=== PATIENT | female | born 1960 | race American Indian/Alaskan Native ===

== ENCOUNTER 2016-08-20 10:31 | Inpatient (IN) | payer MEDICAID ==
[2016-08-20] MEDS ORDERED: ZOFRAN ODT PO ONE (11:38)
[2016-08-20] MEDS ORDERED: NACL 0.9% 1000 ML 2,000 ML IV ONE (11:38)
[2016-08-20] MEDS ORDERED: ROCEPHIN/NS 1 GM/50 ML 1 GM/50 ML BAG IV ONE (12:00)
[2016-08-20] MEDS ORDERED: FLAGYL 500 MG/100 ML 500 MG/100 ML BAG IV ONE (12:00)
[2016-08-20 12:11] LABS: Bilirubin,Urine NEG (Negative); Blood,Urine SM (Negative); Ketones,Urine NEG (Negative); Leukocyte Esterase,Urine LG (Negative); Mucus,Urine FEW /HPF; Nitrite,Urine NEG (Negative); Protein,Urine <15 mg/dL mg/dL (Negative); RBC,Urine < 1.0 /HPF (0.0-6.0); Urobilinogen,Urine < 2.0 mg/dL (<2.0)
[2016-08-20 12:22] LABS: Hematocrit 29.9 % (30.3-42.9); Mean Corpuscular HGB Conc 33 % (30-34); Mean Corpuscular Hemoglobin 30 pg (28-32); Mean Corpuscular Volume 91 fl (79-97); Platelet Count 582 K/mm3 (140-440); Red Blood Count 3.29 M/mm3 (3.65-5.03); Red Cell Distribution Width 16.4 % (13.2-15.2); White Blood Count 18.6 K/mm3 (4.5-11.0)
[2016-08-20 12:31] LABS: INR 1.02 (0.87-1.13)
[2016-08-20 12:37] LABS: Albumin 2.7 g/dL (3.9-5); Albumin/Globulin Ratio 0.6 %; BUN/Creatinine Ratio 40.76; Bilirubin,Total 0.4 mg/dL (0.1-1.2); Calcium 7.7 mg/dL (8.4-10.2); Total Protein 6.9 g/dL (6.3-8.2)
[2016-08-20 12:38] LABS: Chloride 79.9 mmol/L (98-107)
[2016-08-20] MEDS ORDERED: LOPRESSOR IV ONE (12:48)
[2016-08-20 12:58] LABS: Potassium 2.8 mmol/L (3.6-5.0)
[2016-08-20 13:09] LABS: Basophils % (Manual) 0 % (0.0-1.8); Blastocytes % (Manual) 0 %
[2016-08-20 13:11] LABS: Macrocytosis 1+; Polychromasia Few
[2016-08-20 13:12] LABS: Diff Status Complete; Platelet Estimate Appears Increased; Target Cells 1+
[2016-08-20] MEDS ORDERED: LOVENOX SUB-Q ONE (13:30)
[2016-08-20] MEDS ORDERED: K-DUR PO ONE (13:44)
[2016-08-20] MEDS: KCL 10MEQ/100ML 10 MEQ/100 ML BAG IV SCH ×6 (14:06→19:00)
--- NOTE | 2016-08-20 14:10 | Emergency Department Report ---
HPI - General Chief Complaint: Pain General ED Past Medical Hx - Past Medical History Previous Medical History?: Yes Hx Hypertension: Yes Hx CVA: No Hx Congestive Heart Failure: Yes Hx Diabetes: No Hx Arthritis: Yes Hx Asthma: No Hx COPD: Yes - Social History Smoking Status: Current Every Day Smoker Substance Use Type: Alcohol - Medications Home Medications: Home Medications Medication Instructions Recorded Confirmed Last Taken Type Furosemide [Lasix TAB] 40 mg PO QDAY 04/29/16 04/29/16 1 Day Ago History Metoprolol [Lopressor TAB] 12.5 mg PO BID #60 tablet 04/30/16 Unknown Rx NIFEdipine XL [Procardia Xl] 60 mg PO QDAY #30 tablet 04/30/16 Unknown Rx Valsartan [Diovan] 160 mg PO BID #60 tablet 04/30/16 Unknown Rx HYDROcodone/APAP 5-325 [[place] 1 each PO Q4HR PRN #15 tablet 08/20/16 Unknown Rx 5/325] ED Review of Systems ROS: Stated complaint: BED SORES/DIARRHEA Other details as noted in HPI Physical Exam - Physical Exam Vital Signs: Vital Signs 08/20/16 08/20/16 08/20/16 10:59 12:48 13:08 Temperature 97.5 F L Pulse Rate 96 H 114 H 92 H Respiratory 14 13 Rate Blood Pressure 129/65 126/91 Blood Pressure 118/91 [Left] O2 Sat by Pulse 100 100 Oximetry ED Course Vital Signs 08/20/16 08/20/16 08/20/16 10:59 12:48 13:08 Temperature 97.5 F L Pulse Rate 96 H 114 H 92 H Respiratory 14 13 Rate Blood Pressure 129/65 126/91 Blood Pressure 118/91 [Left] O2 Sat by Pulse 100 100 Oximetry ED Medical Decision Making - Lab Data Result diagrams: 08/20/16 11:55 08/20/16 11:55 - Medical Decision Making Dr. Mccullough hospitalists accepts admission. See paper chart for HPI, and ROS Critical care attestation.: If time is entered above; I have spent that time in minutes in the direct care of this critically ill patient, excluding procedure time. ED Disposition Clinical Impression: Hypokalemia, Hyponatremia, SIRS (systemic inflammatory response syndrome) Diarrhea Qualifiers: Diarrhea type: unspecified type Qualified Code(s): R19.7 - Diarrhea, unspecified Disposition: OP ADMITTED IP TO THIS HOSP Is pt being admited?: Yes Condition: Stable Prescriptions: HYDROcodone/APAP 5-325 [[place] 5/325] 1 each PO Q4HR PRN #15 tablet PRN Reason: Pain Referrals: PRIMARY CARE, [Primary Care Provider] - 3-5 Days Time of Disposition: 14:09
--- NOTE | 2016-08-20 16:30 | XRay Report ---
PORTABLE CHEST INDICATION: Tachycardia. COMPARISON: 04/29/2016 FINDINGS: Portable, frontal chest radiograph demonstrates improved congestive pattern. Mild cardiomegaly. Aortic knob calcifications. No large pleural effusions or CHF. EKG leads. Demineralized bones. CONCLUSION: Mild cardiomegaly. Thank you for the opportunity to participate in this patient's care.
--- NOTE | 2016-08-20 17:13 | History and Physical Report ---
History of Present Illness Date of examination: 08/20/16 Date of admission: 08/20/16 Chief complaint: Diarrhea for 4 days History of present illness: 55 y/o AAF poor historian comes in for loose watery stools 4 to 5 times a day for last 4 days.Feels weak.No fever or chills.Has hx of HTN CHF,Copd. No N/V.No SOB Past History Past Medical History: COPD, heart failure, hypertension Past Surgical History: hernia repair, Other (Abd wall Hernia) Social history: lives with family, full code. denies: smoking, alcohol abuse Family history: hypertension Medications and Allergies Allergies Allergy/AdvReac Type Severity Reaction Status Date / Time No Known Allergies Allergy Verified 11/02/15 13:46 Home Medications Medication Instructions Recorded Confirmed Last Taken Type Furosemide [Lasix TAB] 40 mg PO QDAY 04/29/16 04/29/16 1 Day Ago History Metoprolol [Lopressor TAB] 12.5 mg PO BID #60 tablet 04/30/16 Unknown Rx NIFEdipine XL [Procardia Xl] 60 mg PO QDAY #30 tablet 04/30/16 Unknown Rx Valsartan [Diovan] 160 mg PO BID #60 tablet 04/30/16 Unknown Rx HYDROcodone/APAP 5-325 [[place] 1 each PO Q4HR PRN #15 tablet 08/20/16 Unknown Rx 5/325] Active Meds: Active Medications Potassium Chloride (Kcl 10meq/100ml) 10 meq in 100 mls @ 100 mls/hr IV Q1H AMADOR Stop: 08/20/16 17:59 Last Admin: 08/20/16 16:18 Dose: 100 mls/hr Review of Systems All systems: negative Constitutional: no weight loss, no weight gain Ears, nose, mouth and throat: no dysphagia, no sore throat Breasts: deferred Cardiovascular: no chest pain, no orthopnea, no palpitations, no syncope, no lightheadedness, no shortness of breath Respiratory: no cough with sputum, no excessive sputum Gastrointestinal: diarrhea, no nausea, no vomiting Genitourinary Female: no flank pain, no menorrhagia, no dysuria, no urinary frequency Menstruation: ammenorrhea Musculoskeletal: no neck stiffness, no neck pain, no muscle cramps, no myalgias Integumentary: no rash, no pruritis, no redness Neurological: no seizures, no syncope Psychiatric: no anxiety, no depression Endocrine: no cold intolerance, no heat intolerance, no polyphagia, no excessive thirst, no polydipsia, no polyuria Hematologic/Lymphatic: no easy bruising Allergic/Immunologic: no urticaria, no allergic rhinitis, no wheezing Exam - Constitutional Vitals: Temp Pulse Resp BP Pulse Ox 97.5 F L 100 H 17 111/70 100 08/20/16 10:59 08/20/16 15:02 08/20/16 15:02 08/20/16 15:02 08/20/16 15:02 General appearance: Present: no acute distress, well-nourished - EENT Eyes: Present: PERRL ENT: hearing intact, clear oral mucosa - Neck Neck: Present: supple, normal ROM - Respiratory Respiratory effort: normal Respiratory: bilateral: CTA - Cardiovascular Heart Sounds: Present: S1 & S2. Absent: rub, click - Extremities Extremities: pulses symmetrical, No edema Peripheral Pulses: within normal limits - Abdominal General gastrointestinal: Present: soft, non-tender, non-distended, normal bowel sounds, hernia (Abd wall Hernia stu umblical-left) Female genitourinary: Present: normal - Integumentary Integumentary: Present: clear, warm, dry - Musculoskeletal Musculoskeletal: gait normal, strength equal bilaterally - Psychiatric Psychiatric: appropriate mood/affect, intact judgment & insight - Neurologic Neurologic: CNII-XII intact, moves all extremities Results - Labs CBC & Chem 7: 08/21/16 04:54 08/21/16 04:54 Labs: Laboratory Last Values WBC 18.6 K/mm3 (4.5-11.0) H 08/20/16 11:55 RBC 3.29 M/mm3 (3.65-5.03) L 08/20/16 11:55 Hgb 10.0 gm/dl (10.1-14.3) L 08/20/16 11:55 Hct 29.9 % (30.3-42.9) L 08/20/16 11:55 MCV 91 fl (79-97) 08/20/16 11:55 MCH 30 pg (28-32) 08/20/16 11:55 MCHC 33 % (30-34) 08/20/16 11:55 RDW 16.4 % (13.2-15.2) H 08/20/16 11:55 Plt Count 582 K/mm3 (140-440) H 08/20/16 11:55 Add Manual Diff Complete 08/20/16 11:55 Total Counted 100 08/20/16 11:55 Seg Neuts % (Manual) 92.0 % (40.0-70.0) H 08/20/16 11:55 Band Neutrophils % 0 % 08/20/16 11:55 Lymphocytes % (Manual) 2.0 % (13.4-35.0) L 08/20/16 11:55 Reactive Lymphs % (Man) 0 % 08/20/16 11:55 Monocytes % (Manual) 5.0 % (0.0-7.3) 08/20/16 11:55 Eosinophils % (Manual) 1.0 % (0.0-4.3) 08/20/16 11:55 Basophils % (Manual) 0 % (0.0-1.8) 08/20/16 11:55 Metamyelocytes % 0 % 08/20/16 11:55 Myelocytes % 0 % 08/20/16 11:55 Promyelocytes % 0 % 08/20/16 11:55 Blast Cells % 0 % 08/20/16 11:55 Nucleated RBC % Not Reportable 08/20/16 11:55 Seg Neutrophils # Man 17.1 K/mm3 (1.8-7.7) H 08/20/16 11:55 Band Neutrophils # 0.0 K/mm3 08/20/16 11:55 Lymphocytes # (Manual) 0.4 K/mm3 (1.2-5.4) L 08/20/16 11:55 Abs React Lymphs (Man) 0.0 K/mm3 08/20/16 11:55 Monocytes # (Manual) 0.9 K/mm3 (0.0-0.8) H 08/20/16 11:55 Eosinophils # (Manual) 0.2 K/mm3 (0.0-0.4) 08/20/16 11:55 Basophils # (Manual) 0.0 K/mm3 (0.0-0.1) 08/20/16 11:55 Metamyelocytes # 0.0 K/mm3 08/20/16 11:55 Myelocytes # 0.0 K/mm3 08/20/16 11:55 Promyelocytes # 0.0 K/mm3 08/20/16 11:55 Blast Cells # 0.0 K/mm3 08/20/16 11:55 WBC Morphology Not Reportable 08/20/16 11:55 Hypersegmented Neuts Not Reportable 08/20/16 11:55 Hyposegmented Neuts Not Reportable 08/20/16 11:55 Hypogranular Neuts Not Reportable 08/20/16 11:55 Smudge Cells Not Reportable 08/20/16 11:55 Toxic Granulation Not Reportable 08/20/16 11:55 Toxic Vacuolation Not Reportable 08/20/16 11:55 Dohle Bodies Not Reportable 08/20/16 11:55 Pelger-Huet Anomaly Not Reportable 08/20/16 11:55 Emy Rods Not Reportable 08/20/16 11:55 Platelet Estimate Appears increased 08/20/16 11:55 Clumped Platelets Not Reportable 08/20/16 11:55 Plt Clumps, EDTA Not Reportable 08/20/16 11:55 Large Platelets Not Reportable 08/20/16 11:55 Giant Platelets Not Reportable 08/20/16 11:55 Platelet Satelliting Not Reportable 08/20/16 11:55 Plt Morphology Comment Not Reportable 08/20/16 11:55 RBC Morphology Not Reportable 08/20/16 11:55 Dimorphic RBCs Not Reportable 08/20/16 11:55 Polychromasia Few 08/20/16 11:55 Hypochromasia Not Reportable 08/20/16 11:55 Poikilocytosis Not Reportable 08/20/16 11:55 Anisocytosis Not Reportable 08/20/16 11:55 Microcytosis Not Reportable 08/20/16 11:55 Macrocytosis 1+ 08/20/16 11:55 Spherocytes Not Reportable 08/20/16 11:55 Pappenheimer Bodies Not Reportable 08/20/16 11:55 Sickle Cells Not Reportable 08/20/16 11:55 Target Cells 1+ 08/20/16 11:55 Tear Drop Cells Not Reportable 08/20/16 11:55 Ovalocytes Not Reportable 08/20/16 11:55 Helmet Cells Not Reportable 08/20/16 11:55 [place] Bodies Not Reportable 08/20/16 11:55 [place] Rings Not Reportable 08/20/16 11:55 [place] Cells Not Reportable 08/20/16 11:55 Bite Cells Not Reportable 08/20/16 11:55 Crenated Cell Not Reportable 08/20/16 11:55 Elliptocytes Not Reportable 08/20/16 11:55 Acanthocytes (Spur) Not Reportable 08/20/16 11:55 Rouleaux Not Reportable 08/20/16 11:55 Hemoglobin C Crystals Not Reportable 08/20/16 11:55 Schistocytes Not Reportable 08/20/16 11:55 Malaria parasites Not Reportable 08/20/16 11:55 Prasad Bodies Not Reportable 08/20/16 11:55 Hem Pathologist Commnt No 08/20/16 11:55 PT 13.3 Sec. (12.2-14.9) 08/20/16 11:55 INR 1.02 (0.87-1.13) 08/20/16 11:55 APTT 36.0 Sec. (24.2-36.6) 08/20/16 11:55 Sodium 121 mmol/L (137-145) L 08/20/16 11:55 Potassium 2.8 mmol/L (3.6-5.0) L* 08/20/16 11:55 Chloride 79.9 mmol/L (98-107) L 08/20/16 11:55 Carbon Dioxide 21 mmol/L (22-30) L 08/20/16 11:55 Anion Gap 23 mmol/L 08/20/16 11:55 BUN 53 mg/dL (7-17) H 08/20/16 11:55 Creatinine 1.3 mg/dL (0.7-1.2) H 08/20/16 11:55 Estimated GFR 51 ml/min 08/20/16 11:55 BUN/Creatinine Ratio 40.76 % 08/20/16 11:55 Glucose 79 mg/dL (65-100) 08/20/16 11:55 Lactic Acid 2.0 mmol/L (0.7-2.0) 08/20/16 11:55 Calcium 7.7 mg/dL (8.4-10.2) L 08/20/16 11:55 Total Bilirubin 0.4 mg/dL (0.1-1.2) 08/20/16 11:55 AST 16 units/L (5-40) 08/20/16 11:55 ALT 14 units/L (7-56) 08/20/16 11:55 Alkaline Phosphatase 140 units/L (35-129) H 08/20/16 11:55 Troponin T 0.023 ng/mL (0.00-0.029) 08/20/16 11:55 Total Protein 6.9 g/dL (6.3-8.2) 08/20/16 11:55 Albumin 2.7 g/dL (3.9-5) L 08/20/16 11:55 Albumin/Globulin Ratio 0.6 % 08/20/16 11:55 Lipase 17 units/L (13-60) 08/20/16 11:55 Urine Color Yellow (Yellow) 08/20/16 11:54 Urine Turbidity Clear (Clear) 08/20/16 11:54 Urine pH 5.0 (5.0-7.0) 08/20/16 11:54 Ur Specific [place] 1.005 (1.003-1.030) 08/20/16 11:54 Urine Protein <15 mg/dl mg/dL (Negative) 08/20/16 11:54 Urine Glucose (UA) Neg mg/dL (Negative) 08/20/16 11:54 Urine Ketones Neg mg/dL (Negative) 08/20/16 11:54 Urine Blood Sm (Negative) 08/20/16 11:54 Urine Nitrite Neg (Negative) 08/20/16 11:54 Urine Bilirubin Neg (Negative) 08/20/16 11:54 Urine Urobilinogen < 2.0 mg/dL (<2.0) 08/20/16 11:54 Ur Leukocyte Esterase Lg (Negative) 08/20/16 11:54 Urine WBC (Auto) 2.0 /HPF (0.0-6.0) 08/20/16 11:54 Urine RBC (Auto) < 1.0 /HPF (0.0-6.0) 08/20/16 11:54 U Epithel Cells (Auto) < 1.0 /HPF (0-13.0) 08/20/16 11:54 Urine Mucus Few /HPF 08/20/16 11:54 Short CBC 08/20/16 08/21/16 Range/Units 11:55 04:54 WBC 18.6 H 15.1 H (4.5-11.0) K/mm3 Hgb 10.0 L 8.6 L (10.1-14.3) gm/dl Hct 29.9 L 26.2 L (30.3-42.9) % Plt Count 582 H 545 H (140-440) K/mm3 BMP 08/20/16 08/20/16 08/21/16 11:55 18:58 00:06 Sodium 121 L 125 L Potassium 2.8 L* 3.5 L D 3.6 Chloride 79.9 L 89.2 L Carbon Dioxide 21 L 19 L BUN 53 H 53 H Creatinine 1.3 H 1.2 Glucose 79 68 Calcium 7.7 L 7.1 L 08/21/16 04:54 Sodium 134 L D Potassium 3.4 L Chloride 96.7 L Carbon Dioxide 20 L BUN 50 H Creatinine 1.5 H Glucose 54 L Calcium 7.3 L Cardiac Enzymes 08/20/16 Range/Units 11:55 Troponin T 0.023 (0.00-0.029) ng/mL Liver Function 08/20/16 08/21/16 Range/Units 11:55 04:54 Total Bilirubin 0.4 0.5 (0.1-1.2) mg/dL AST 16 15 (5-40) units/L ALT 14 12 (7-56) units/L Alkaline Phosphatase 140 H 111 (35-129) units/L Albumin 2.7 L 2.2 L (3.9-5) g/dL Urine 08/20/16 Range/Units 11:54 Urine Color Yellow (Yellow) Urine pH 5.0 (5.0-7.0) Ur Specific [place] 1.005 (1.003-1.030) Urine Protein <15 mg/dl (Negative) mg/dL Urine Glucose (UA) Neg (Negative) mg/dL - Imaging and Cardiology EKG: report reviewed Chest x-ray: report reviewed (NAF) Assessment and Plan Advance Directives: Yes (Full code) VTE prophylaxis?: Chemical Plan of care discussed with patient/family: Yes - Patient Problems (1) Diarrhea Current Visit: Yes Status: Acute Qualifiers: Diarrhea type: unspecified type Qualified Code(s): R19.7 - Diarrhea, unspecified Plan to address problem: R/o C diff Empiric Flagyl started (2) Hyponatremia syndrome Current Visit: No Status: Acute Plan to address problem: Na 121 sec to Lasix.Not on K supplements. (3) Hypokalemia Current Visit: Yes Status: Acute Plan to address problem: Supplemented. Lasix stopped (4) Chronic diastolic CHF (congestive heart failure) Current Visit: No Status: Chronic Plan to address problem: Stopped lasix Check Echo (5) SIRS (systemic inflammatory response syndrome) Current Visit: Yes Status: Acute Plan to address problem: High WBC.Started on empiric abx.IV levaquin. (6) DVT prophylaxis Current Visit: No Status: Acute Plan to address problem: on lovenox
[2016-08-20] MEDS ORDERED: ZOFRAN IV PRN (17:15)
[2016-08-20] MEDS ORDERED: TYLENOL PO PRN (17:15)
[2016-08-20] MEDS ORDERED: DULCOLAX PR PRN (17:15)
[2016-08-20] MEDS ORDERED: AMBIEN PO PRN (17:15)
[2016-08-20] MEDS ORDERED: MILK OF MAGNESIA PO PRN (17:15)
[2016-08-20] MEDS ORDERED: DILAUDID IV PRN (17:15)
[2016-08-20] MEDS ORDERED: NACL 3% 500 ML IV ONE (17:32)
[2016-08-20] MEDS ORDERED: LASIX PO SCH (18:00)
[2016-08-20] MEDS ORDERED: LEVAQUIN 750MG/150ML 750 MG/150 ML BAG IV SCH (18:00)
[2016-08-20] MEDS ORDERED: D5NS 1,000 ML IV SCH (18:00)
--- NOTE | 2016-08-20 18:15 | Admit Criteria Form ---
Admission Criteria Documentation: HYPONATREMIA; HYPERNATREMIA; HYPOKALEMIA; HYPERKALEMIA; HYPOCALCEMIA; HYPERCALCEMIA Clinical Indications for Inpatient Care (Place 'X' for any and all applicable criteria): Ongoing inpatient care may be indicated for ANY ONE of the following [G](1)(2)(3 )(5): [X ]I. Hyponatremia with ANY ONE of the following: [ X]a) Sodium less than 130 mEq/L (mmol/L) (new) (6)(22) [ ]b) Sodium less than 135 mEq/L (mmol/L) with ANY ONE of the following: [ ]i) Severe medical etiology requiring inpatient management (eg, heart failure, hypovolemia) [ ]ii) Altered mental status [ ]iii) Seizures [ ]II. Hypernatremia with ANY ONE of the following: [ ]a) Sodium greater than 155 mEq/L (mmol/L) [ ]b) Sodium greater than 150 mEq/L (mmol/L) with ANY ONE of the following: [ ] i) Altered mental status [ ]ii) Seizures [ ]iii) Severe medical etiology (eg, hypovolemia, diabetes insipidus) [ ]iv) Severe weakness [ ]v) Severe medical etiology (eg, hemolysis, infection, drug overdose) [ ]III. Hypokalemia with ANY ONE of the following: [ ]a) Potassium less than 2.5 mEq/L (mmol/L) despite outpatient and emergency treatment [ ]b) Potassium less than 3.0 mEq/L (mmol/L) with ANY ONE of the following: [ ]i) Weakness [ ]ii) Cardiac abnormality (eg, arrhythmia, conduction disturbance) [ ]iii) Cardiac ischemia [ ]iv) Ileus [ ]v) Ongoing medical cause requiring inpatient management. ( e.g., acute renal wasting, SIADH) [ ]vi) Other severe symptoms [ ] IV. Hyperkalemia with ANY ONE of the following: [ ]a) Potassium greater than 6.5 mEq/L (mmol/L) [ ]b) Potassium greater than 5 mEq/L (mmol/L) with ANY ONE of the following: [ ]i) Severe ECG findings [H] [ ]ii) Acute worsening of renal failure (creatinine greater than 2.5 mg/dL (221 micromoles/L) or significant elevation for age and size) [ ] V. Hypocalcemia with ANY ONE of the following: [ ]a) Calcium less than 7 mg/dL (1.75 mmol/L) despite outpatient and emergency treatment(19) [ ]b) Calcium less than 8 mg/dL (2 mmol/L) with significant symptoms or findings; examples include: [ ]i) Cardiac abnormality (eg, arrhythmia or conduction disturbance) [ ]ii) Altered mental status [ ]iii) Seizures [ ]iv) Breathing difficulty [ ]v) Muscle spasms [ ]. Hypercalcemia with ANY ONE of the following: [ ]a) Calcium greater than 14 mg/dL (3.5 mmol/L) [ ]b) Calcium greater than 12 mg/dL (3 mmol/L) with ANY ONE of the following: [ ]i) Significant dehydration or hypovolemia as indicated by ANY ONE of the following(2): [ ]1. Clinically significant dehydration as indicated by ANY ONE of the following: [ ]A. Acute loss of weight from baseline (5% of body weight in adults, 9% in pediatric patients) [ ]B. Hemodynamic instability [ ]C. Acute renal failure [ ]D. Serum sodium greater than 150 mEq/L (mmol/L) [ ]2) Dehydration that is persistent indicated by ALL of the following: [ ]A. Oral rehydration therapy not tolerated or insufficient to adequately correct dehydration [ ]B. Appropriate intravenous treatment (eg, fluids ) does not readily correct dehydration ie, after 12 to 24 hours of treatment) [ ]ii) Significant symptoms or findings; examples include: [ ]1) Altered mental status [ ]2) Cardiac abnormality (eg, arrhythmia, conduction disturbance) [ ]3) Cardiac abnormality (eg, arrhythmia, conduction disturbance) The original [facility] content created by [employer] has been revised. The portions of the content which have been revised are identified through the use of italic text or in bold, and [facility] has neither reviewed nor approved the modified material. All other unmodified content is copyright [facility] [employer] Please see references footnoted in the original [facility] [employer] edition 2016 Admission Criteria Met: Yes
[2016-08-20] MEDS: PROCARDIA XL PO SCH (18:38)
[2016-08-20] MEDS: LOPRESSOR PO SCH (21:41)
[2016-08-20] MEDS: DIOVAN PO SCH (21:42)
[2016-08-20] MEDS: FLAGYL PO SCH (23:58)
[2016-08-21] MEDS: FLAGYL PO SCH ×2 (00:01→05:09)
[2016-08-21] MEDS: PERCOCET 5/325 PO PRN ×2 (00:05→15:30)
[2016-08-21 00:59] LABS: BUN/Creatinine Ratio 44.16; Calcium 7.1 mg/dL (8.4-10.2); Chloride 89.2 mmol/L (98-107); Potassium 3.6 mmol/L (3.6-5.0)
[2016-08-21] MEDS: LOVENOX SUB-Q SCH ×2 (03:07→10:18)
[2016-08-21 06:18] LABS: Basophils % (Auto) 0.1 % (0.0-1.8); Eosinophils % (Auto) 0.7 % (0.0-4.3); Hematocrit 26.2 % (30.3-42.9); Hemoglobin 8.6 gm/dl (10.1-14.3); Mean Corpuscular HGB Conc 33 % (30-34); Mean Corpuscular Hemoglobin 30 pg (28-32); Mean Corpuscular Volume 91 fl (79-97); Platelet Count 545 K/mm3 (140-440); Red Blood Count 2.87 M/mm3 (3.65-5.03); Red Cell Distribution Width 16.3 % (13.2-15.2); White Blood Count 15.1 K/mm3 (4.5-11.0)
[2016-08-21 06:25] LABS: Albumin 2.2 g/dL (3.9-5); Albumin/Globulin Ratio 0.6 %; BUN/Creatinine Ratio 33.33; Bilirubin,Total 0.5 mg/dL (0.1-1.2); Calcium 7.3 mg/dL (8.4-10.2); Chloride 96.7 mmol/L (98-107); Potassium 3.4 mmol/L (3.6-5.0)
[2016-08-21] MEDS: LOPRESSOR PO SCH ×2 (10:17→22:38)
[2016-08-21] MEDS: DIOVAN PO SCH ×2 (10:17→22:46)
[2016-08-21] MEDS: PROCARDIA XL PO SCH (10:17)
[2016-08-21] MEDS ORDERED: MAGNESIUM SULFATE 2GM/50ML 2 GM/50 ML BAG IV ONE (10:18)
--- NOTE | 2016-08-21 10:19 | Progress Note ---
Assessment and Plan Assessment and plan: 55F who presented with weakness and diarrhea, now c/o dysphagia, coughing upon any attempt to eat, admits to etoh abuse drinks up to 5 drinks daily 1. Diarrhea c diff ruled out, dc abx, continue supportive care, likely due to etoh abuse, diarrhea resolving, check fecal fat (2) Hyponatremia syndrome Continue saline IV, improving (3) Hypokalemia continue K replacement (4) Chronic diastolic CHF (congestive heart failure) lasix on hold for now, optimize meds (5) SIRS (systemic inflammatory response syndrome) infectious workup negative, dc abx 6. Etoh abuse -[facility] protocol, thiamine and folate 7. Dysphagia We'll make nothing by mouth, speech and swallow evaluation History Interval history: She states that diarrhea is improving, is complaining of difficulty swallowing, return she attempted to eat anything she ends up coughing. Denies any tremors Hospitalist Physical - Physical exam Narrative exam: General: Disheveled appearance chronically ill HEENT: Dry mucous membranes cardiac: S1-S2 heard lungs: clear to auscultation, abdomen: soft, nontender, nondistended bowel sounds positive extremities: no edema clubbing or cyanosis Skin: no rash or lesion Neuro: no focal deficit Psych: appropriate behavior and mood, cognition intact - Constitutional Vitals: Temp Pulse Resp BP Pulse Ox 98.2 F 78 18 122/60 95 08/21/16 00:22 08/21/16 00:22 08/21/16 00:22 08/21/16 00:22 08/21/16 00:22 General appearance: Present: no acute distress, well-nourished Results - Labs CBC & Chem 7: 08/21/16 04:54 08/21/16 04:54 Labs: Laboratory Last Values WBC 15.1 K/mm3 (4.5-11.0) H 08/21/16 04:54 RBC 2.87 M/mm3 (3.65-5.03) L 08/21/16 04:54 Hgb 8.6 gm/dl (10.1-14.3) L 08/21/16 04:54 Hct 26.2 % (30.3-42.9) L 08/21/16 04:54 MCV 91 fl (79-97) 08/21/16 04:54 MCH 30 pg (28-32) 08/21/16 04:54 MCHC 33 % (30-34) 08/21/16 04:54 RDW 16.3 % (13.2-15.2) H 08/21/16 04:54 Plt Count 545 K/mm3 (140-440) H 08/21/16 04:54 Lymph % (Auto) 5.5 % (13.4-35.0) L 08/21/16 04:54 [place] % (Auto) 9.4 % (0.0-7.3) H 08/21/16 04:54 Eos % (Auto) 0.7 % (0.0-4.3) 08/21/16 04:54 Baso % (Auto) 0.1 % (0.0-1.8) 08/21/16 04:54 Lymph # 0.8 K/mm3 (1.2-5.4) L 08/21/16 04:54 [place] # 1.4 K/mm3 (0.0-0.8) H 08/21/16 04:54 Eos # 0.1 K/mm3 (0.0-0.4) 08/21/16 04:54 Baso # 0.0 K/mm3 (0.0-0.1) 08/21/16 04:54 Add Manual Diff Complete 08/20/16 11:55 Total Counted 100 08/20/16 11:55 Seg Neutrophils % 84.3 % (40.0-70.0) H 08/21/16 04:54 Seg Neuts % (Manual) 92.0 % (40.0-70.0) H 08/20/16 11:55 Band Neutrophils % 0 % 08/20/16 11:55 Lymphocytes % (Manual) 2.0 % (13.4-35.0) L 08/20/16 11:55 Reactive Lymphs % (Man) 0 % 08/20/16 11:55 Monocytes % (Manual) 5.0 % (0.0-7.3) 08/20/16 11:55 Eosinophils % (Manual) 1.0 % (0.0-4.3) 08/20/16 11:55 Basophils % (Manual) 0 % (0.0-1.8) 08/20/16 11:55 Metamyelocytes % 0 % 08/20/16 11:55 Myelocytes % 0 % 08/20/16 11:55 Promyelocytes % 0 % 08/20/16 11:55 Blast Cells % 0 % 08/20/16 11:55 Nucleated RBC % Not Reportable 08/20/16 11:55 Seg Neutrophils # 12.8 K/mm3 (1.8-7.7) H 08/21/16 04:54 Seg Neutrophils # Man 17.1 K/mm3 (1.8-7.7) H 08/20/16 11:55 Band Neutrophils # 0.0 K/mm3 08/20/16 11:55 Lymphocytes # (Manual) 0.4 K/mm3 (1.2-5.4) L 08/20/16 11:55 Abs React Lymphs (Man) 0.0 K/mm3 08/20/16 11:55 Monocytes # (Manual) 0.9 K/mm3 (0.0-0.8) H 08/20/16 11:55 Eosinophils # (Manual) 0.2 K/mm3 (0.0-0.4) 08/20/16 11:55 Basophils # (Manual) 0.0 K/mm3 (0.0-0.1) 08/20/16 11:55 Metamyelocytes # 0.0 K/mm3 08/20/16 11:55 Myelocytes # 0.0 K/mm3 08/20/16 11:55 Promyelocytes # 0.0 K/mm3 08/20/16 11:55 Blast Cells # 0.0 K/mm3 08/20/16 11:55 WBC Morphology Not Reportable 08/20/16 11:55 Hypersegmented Neuts Not Reportable 08/20/16 11:55 Hyposegmented Neuts Not Reportable 08/20/16 11:55 Hypogranular Neuts Not Reportable 08/20/16 11:55 Smudge Cells Not Reportable 08/20/16 11:55 Toxic Granulation Not Reportable 08/20/16 11:55 Toxic Vacuolation Not Reportable 08/20/16 11:55 Dohle Bodies Not Reportable 08/20/16 11:55 Pelger-Huet Anomaly Not Reportable 08/20/16 11:55 Emy Rods Not Reportable 08/20/16 11:55 Platelet Estimate Appears increased 08/20/16 11:55 Clumped Platelets Not Reportable 08/20/16 11:55 Plt Clumps, EDTA Not Reportable 08/20/16 11:55 Large Platelets Not Reportable 08/20/16 11:55 Giant Platelets Not Reportable 08/20/16 11:55 Platelet Satelliting Not Reportable 08/20/16 11:55 Plt Morphology Comment Not Reportable 08/20/16 11:55 RBC Morphology Not Reportable 08/20/16 11:55 Dimorphic RBCs Not Reportable 08/20/16 11:55 Polychromasia Few 08/20/16 11:55 Hypochromasia Not Reportable 08/20/16 11:55 Poikilocytosis Not Reportable 08/20/16 11:55 Anisocytosis Not Reportable 08/20/16 11:55 Microcytosis Not Reportable 08/20/16 11:55 Macrocytosis 1+ 08/20/16 11:55 Spherocytes Not Reportable 08/20/16 11:55 Pappenheimer Bodies Not Reportable 08/20/16 11:55 Sickle Cells Not Reportable 08/20/16 11:55 Target Cells 1+ 08/20/16 11:55 Tear Drop Cells Not Reportable 08/20/16 11:55 Ovalocytes Not Reportable 08/20/16 11:55 Helmet Cells Not Reportable 08/20/16 11:55 [place] Bodies Not Reportable 08/20/16 11:55 [place] Rings Not Reportable 08/20/16 11:55 [place] Cells Not Reportable 08/20/16 11:55 Bite Cells Not Reportable 08/20/16 11:55 Crenated Cell Not Reportable 08/20/16 11:55 Elliptocytes Not Reportable 08/20/16 11:55 Acanthocytes (Spur) Not Reportable 08/20/16 11:55 Rouleaux Not Reportable 08/20/16 11:55 Hemoglobin C Crystals Not Reportable 08/20/16 11:55 Schistocytes Not Reportable 08/20/16 11:55 Malaria parasites Not Reportable 08/20/16 11:55 Prasad Bodies Not Reportable 08/20/16 11:55 Hem Pathologist Commnt No 08/20/16 11:55 PT 13.3 Sec. (12.2-14.9) 08/20/16 11:55 INR 1.02 (0.87-1.13) 08/20/16 11:55 APTT 36.0 Sec. (24.2-36.6) 08/20/16 11:55 Sodium 134 mmol/L (137-145) L D 08/21/16 04:54 Potassium 3.4 mmol/L (3.6-5.0) L 08/21/16 04:54 Chloride 96.7 mmol/L (98-107) L 08/21/16 04:54 Carbon Dioxide 20 mmol/L (22-30) L 08/21/16 04:54 Anion Gap 21 mmol/L 08/21/16 04:54 BUN 50 mg/dL (7-17) H 08/21/16 04:54 Creatinine 1.5 mg/dL (0.7-1.2) H 08/21/16 04:54 Estimated GFR 43 ml/min 08/21/16 04:54 BUN/Creatinine Ratio 33.33 % 08/21/16 04:54 Glucose 54 mg/dL (65-100) L 08/21/16 04:54 Lactic Acid 2.0 mmol/L (0.7-2.0) 08/20/16 11:55 Calcium 7.3 mg/dL (8.4-10.2) L 08/21/16 04:54 Total Bilirubin 0.5 mg/dL (0.1-1.2) 08/21/16 04:54 AST 15 units/L (5-40) 08/21/16 04:54 ALT 12 units/L (7-56) 08/21/16 04:54 Alkaline Phosphatase 111 units/L (35-129) 08/21/16 04:54 Troponin T 0.023 ng/mL (0.00-0.029) 08/20/16 11:55 Total Protein 6.0 g/dL (6.3-8.2) L 08/21/16 04:54 Albumin 2.2 g/dL (3.9-5) L 08/21/16 04:54 Albumin/Globulin Ratio 0.6 % 08/21/16 04:54 Lipase 17 units/L (13-60) 08/20/16 11:55 Urine Color Yellow (Yellow) 08/20/16 11:54 Urine Turbidity Clear (Clear) 08/20/16 11:54 Urine pH 5.0 (5.0-7.0) 08/20/16 11:54 Ur Specific [place] 1.005 (1.003-1.030) 08/20/16 11:54 Urine Protein <15 mg/dl mg/dL (Negative) 08/20/16 11:54 Urine Glucose (UA) Neg mg/dL (Negative) 08/20/16 11:54 Urine Ketones Neg mg/dL (Negative) 08/20/16 11:54 Urine Blood Sm (Negative) 08/20/16 11:54 Urine Nitrite Neg (Negative) 08/20/16 11:54 Urine Bilirubin Neg (Negative) 08/20/16 11:54 Urine Urobilinogen < 2.0 mg/dL (<2.0) 08/20/16 11:54 Ur Leukocyte Esterase Lg (Negative) 08/20/16 11:54 Urine WBC (Auto) 2.0 /HPF (0.0-6.0) 08/20/16 11:54 Urine RBC (Auto) < 1.0 /HPF (0.0-6.0) 08/20/16 11:54 U Epithel Cells (Auto) < 1.0 /HPF (0-13.0) 08/20/16 11:54 Urine Mucus Few /HPF 08/20/16 11:54
[2016-08-21] MEDS ORDERED: NACL 0.9% 1000 ML 1,000 ML with KCL 40 MEQ IV SCH (11:00)
[2016-08-21] MEDS ORDERED: FLUARIX QUAD 2016-2017(36 MOS+) IM ONE (12:00)
[2016-08-21] MEDS ORDERED: PNEUMOVAX 23 IM ONE (12:00)
[2016-08-21 13:19] LABS: Potassium, Urine 12.15 mEq/L
[2016-08-21] MEDS ORDERED: ATIVAN IV PRN ×2 (13:46)
[2016-08-21] MEDS: THERMAZENE 50 GRAM TP SCH (22:47)
[2016-08-21] MEDS: NS/KCL 40MEQ 40 MEQ/1,000 ML BAG IV SCH (23:35)
[2016-08-22] MEDS: ATIVAN IV PRN ×2 (04:25→15:00)
[2016-08-22 06:02] LABS: BUN/Creatinine Ratio 26.66; Calcium 7.6 mg/dL (8.4-10.2); Chloride 101.4 mmol/L (98-107); Magnesium 1.3 mg/dL (1.7-2.3); Potassium 3.1 mmol/L (3.6-5.0)
[2016-08-22] MEDS: PROCARDIA XL PO SCH (09:55)
[2016-08-22] MEDS: DIOVAN PO SCH ×2 (09:55→22:47)
[2016-08-22] MEDS: LOPRESSOR PO SCH ×2 (09:55→22:48)
[2016-08-22] MEDS: LOVENOX SUB-Q SCH (09:55)
[2016-08-22] MEDS: VITAMIN B-1 PO SCH (09:55)
[2016-08-22] MEDS: FOLVITE PO SCH (09:56)
[2016-08-22] MEDS: THERMAZENE 50 GRAM TP SCH ×2 (09:59→22:49)
[2016-08-22] MEDS: NS/KCL 40MEQ 40 MEQ/1,000 ML BAG IV SCH (11:00)
[2016-08-22] MEDS: ROCEPHIN/NS 1 GM/50 ML 1 GM/50 ML BAG IV SCH (11:30)
--- NOTE | 2016-08-22 14:24 | Progress Note ---
Assessment and Plan Assessment and plan: 55F who presented with weakness and diarrhea, now c/o dysphagia, coughing upon any attempt to eat, admits to etoh abuse drinks up to 5 drinks daily 1. Diarrhea c diff ruled out, dc abx, continue supportive care, likely due to etoh abuse, diarrhea now resolved (2) Hyponatremia syndrome Likely due to alcohol potomania Continue saline IV, improving (3) Hypokalemia and Hypomagnesemia continue IV replacement (4) Chronic diastolic CHF (congestive heart failure) lasix on hold for now, optimize meds, continue IVF as she is dehydrated (5) SIRS (systemic inflammatory response syndrome) infectious workup negative, dc abx 6. Etoh abuse -[facility] protocol, thiamine and folate 7. Dysphagia We'll make nothing by mouth, awaiting speech and swallow evaluation 8. Sacral and pubic rash, likely due to chronic wetness, i.e Diaper rash continue wound care and ointments 9. Enterobacter and serratia UTI rx with 3 days of abx, C/S reviewed they are both sens to rocephin History Interval history: She states that diarrhea is improving, is complaining of difficulty swallowing, return she attempted to eat anything she ends up coughing. Denies any tremors has had waxing and waning periods of delirium Hospitalist Physical - Physical exam Narrative exam: General: Disheveled appearance chronically ill HEENT: Dry mucous membranes cardiac: S1-S2 heard lungs: clear to auscultation, abdomen: soft, nontender, nondistended bowel sounds positive extremities: no edema clubbing or cyanosis Skin: Skin breakdown in diaper area Neuro: no focal deficit Psych: appropriate behavior and mood, cognition intact - Constitutional Vitals: Temp Pulse Resp BP Pulse Ox 97.4 F L 92 H 20 137/92 99 08/22/16 12:16 08/22/16 12:16 08/22/16 12:16 08/22/16 12:16 08/22/16 08:25 General appearance: Present: no acute distress, well-nourished Results - Labs CBC & Chem 7: 08/21/16 04:54 08/23/16 10:38 Labs: Laboratory Last Values WBC 15.1 K/mm3 (4.5-11.0) H 08/21/16 04:54 RBC 2.87 M/mm3 (3.65-5.03) L 08/21/16 04:54 Hgb 8.6 gm/dl (10.1-14.3) L 08/21/16 04:54 Hct 26.2 % (30.3-42.9) L 08/21/16 04:54 MCV 91 fl (79-97) 08/21/16 04:54 MCH 30 pg (28-32) 08/21/16 04:54 MCHC 33 % (30-34) 08/21/16 04:54 RDW 16.3 % (13.2-15.2) H 08/21/16 04:54 Plt Count 545 K/mm3 (140-440) H 08/21/16 04:54 Lymph % (Auto) 5.5 % (13.4-35.0) L 08/21/16 04:54 [place] % (Auto) 9.4 % (0.0-7.3) H 08/21/16 04:54 Eos % (Auto) 0.7 % (0.0-4.3) 08/21/16 04:54 Baso % (Auto) 0.1 % (0.0-1.8) 08/21/16 04:54 Lymph # 0.8 K/mm3 (1.2-5.4) L 08/21/16 04:54 [place] # 1.4 K/mm3 (0.0-0.8) H 08/21/16 04:54 Eos # 0.1 K/mm3 (0.0-0.4) 08/21/16 04:54 Baso # 0.0 K/mm3 (0.0-0.1) 08/21/16 04:54 Add Manual Diff Complete 08/20/16 11:55 Total Counted 100 08/20/16 11:55 Seg Neutrophils % 84.3 % (40.0-70.0) H 08/21/16 04:54 Seg Neuts % (Manual) 92.0 % (40.0-70.0) H 08/20/16 11:55 Band Neutrophils % 0 % 08/20/16 11:55 Lymphocytes % (Manual) 2.0 % (13.4-35.0) L 08/20/16 11:55 Reactive Lymphs % (Man) 0 % 08/20/16 11:55 Monocytes % (Manual) 5.0 % (0.0-7.3) 08/20/16 11:55 Eosinophils % (Manual) 1.0 % (0.0-4.3) 08/20/16 11:55 Basophils % (Manual) 0 % (0.0-1.8) 08/20/16 11:55 Metamyelocytes % 0 % 08/20/16 11:55 Myelocytes % 0 % 08/20/16 11:55 Promyelocytes % 0 % 08/20/16 11:55 Blast Cells % 0 % 08/20/16 11:55 Nucleated RBC % Not Reportable 08/20/16 11:55 Seg Neutrophils # 12.8 K/mm3 (1.8-7.7) H 08/21/16 04:54 Seg Neutrophils # Man 17.1 K/mm3 (1.8-7.7) H 08/20/16 11:55 Band Neutrophils # 0.0 K/mm3 08/20/16 11:55 Lymphocytes # (Manual) 0.4 K/mm3 (1.2-5.4) L 08/20/16 11:55 Abs React Lymphs (Man) 0.0 K/mm3 08/20/16 11:55 Monocytes # (Manual) 0.9 K/mm3 (0.0-0.8) H 08/20/16 11:55 Eosinophils # (Manual) 0.2 K/mm3 (0.0-0.4) 08/20/16 11:55 Basophils # (Manual) 0.0 K/mm3 (0.0-0.1) 08/20/16 11:55 Metamyelocytes # 0.0 K/mm3 08/20/16 11:55 Myelocytes # 0.0 K/mm3 08/20/16 11:55 Promyelocytes # 0.0 K/mm3 08/20/16 11:55 Blast Cells # 0.0 K/mm3 08/20/16 11:55 WBC Morphology Not Reportable 08/20/16 11:55 Hypersegmented Neuts Not Reportable 08/20/16 11:55 Hyposegmented Neuts Not Reportable 08/20/16 11:55 Hypogranular Neuts Not Reportable 08/20/16 11:55 Smudge Cells Not Reportable 08/20/16 11:55 Toxic Granulation Not Reportable 08/20/16 11:55 Toxic Vacuolation Not Reportable 08/20/16 11:55 Dohle Bodies Not Reportable 08/20/16 11:55 Pelger-Huet Anomaly Not Reportable 08/20/16 11:55 Emy Rods Not Reportable 08/20/16 11:55 Platelet Estimate Appears increased 08/20/16 11:55 Clumped Platelets Not Reportable 08/20/16 11:55 Plt Clumps, EDTA Not Reportable 08/20/16 11:55 Large Platelets Not Reportable 08/20/16 11:55 Giant Platelets Not Reportable 08/20/16 11:55 Platelet Satelliting Not Reportable 08/20/16 11:55 Plt Morphology Comment Not Reportable 08/20/16 11:55 RBC Morphology Not Reportable 08/20/16 11:55 Dimorphic RBCs Not Reportable 08/20/16 11:55 Polychromasia Few 08/20/16 11:55 Hypochromasia Not Reportable 08/20/16 11:55 Poikilocytosis Not Reportable 08/20/16 11:55 Anisocytosis Not Reportable 08/20/16 11:55 Microcytosis Not Reportable 08/20/16 11:55 Macrocytosis 1+ 08/20/16 11:55 Spherocytes Not Reportable 08/20/16 11:55 Pappenheimer Bodies Not Reportable 08/20/16 11:55 Sickle Cells Not Reportable 08/20/16 11:55 Target Cells 1+ 08/20/16 11:55 Tear Drop Cells Not Reportable 08/20/16 11:55 Ovalocytes Not Reportable 08/20/16 11:55 Helmet Cells Not Reportable 08/20/16 11:55 [place] Bodies Not Reportable 08/20/16 11:55 [place] Rings Not Reportable 08/20/16 11:55 [place] Cells Not Reportable 08/20/16 11:55 Bite Cells Not Reportable 08/20/16 11:55 Crenated Cell Not Reportable 08/20/16 11:55 Elliptocytes Not Reportable 08/20/16 11:55 Acanthocytes (Spur) Not Reportable 08/20/16 11:55 Rouleaux Not Reportable 08/20/16 11:55 Hemoglobin C Crystals Not Reportable 08/20/16 11:55 Schistocytes Not Reportable 08/20/16 11:55 Malaria parasites Not Reportable 08/20/16 11:55 Prasad Bodies Not Reportable 08/20/16 11:55 Hem Pathologist Commnt No 08/20/16 11:55 PT 13.3 Sec. (12.2-14.9) 08/20/16 11:55 INR 1.02 (0.87-1.13) 08/20/16 11:55 APTT 36.0 Sec. (24.2-36.6) 08/20/16 11:55 Sodium 136 mmol/L (137-145) L 08/22/16 05:09 Potassium 3.1 mmol/L (3.6-5.0) L 08/22/16 05:09 Chloride 101.4 mmol/L (98-107) 08/22/16 05:09 Carbon Dioxide 20 mmol/L (22-30) L 08/22/16 05:09 Anion Gap 18 mmol/L 08/22/16 05:09 BUN 40 mg/dL (7-17) H 08/22/16 05:09 Creatinine 1.5 mg/dL (0.7-1.2) H 08/22/16 05:09 Estimated GFR 43 ml/min 08/22/16 05:09 BUN/Creatinine Ratio 26.66 % 08/22/16 05:09 Glucose 86 mg/dL (65-100) 08/22/16 05:09 Lactic Acid 2.0 mmol/L (0.7-2.0) 08/20/16 11:55 Calcium 7.6 mg/dL (8.4-10.2) L 08/22/16 05:09 Magnesium 1.3 mg/dL (1.7-2.3) L 08/22/16 05:09 Total Bilirubin 0.5 mg/dL (0.1-1.2) 08/21/16 04:54 AST 15 units/L (5-40) 08/21/16 04:54 ALT 12 units/L (7-56) 08/21/16 04:54 Alkaline Phosphatase 111 units/L (35-129) 08/21/16 04:54 Troponin T 0.023 ng/mL (0.00-0.029) 08/20/16 11:55 Total Protein 6.0 g/dL (6.3-8.2) L 08/21/16 04:54 Albumin 2.2 g/dL (3.9-5) L 08/21/16 04:54 Albumin/Globulin Ratio 0.6 % 08/21/16 04:54 Lipase 17 units/L (13-60) 08/20/16 11:55 Urine Color Yellow (Yellow) 08/20/16 11:54 Urine Turbidity Clear (Clear) 08/20/16 11:54 Urine pH 5.0 (5.0-7.0) 08/20/16 11:54 Ur Specific [place] 1.005 (1.003-1.030) 08/20/16 11:54 Urine Protein <15 mg/dl mg/dL (Negative) 08/20/16 11:54 Urine Glucose (UA) Neg mg/dL (Negative) 08/20/16 11:54 Urine Ketones Neg mg/dL (Negative) 08/20/16 11:54 Urine Blood Sm (Negative) 08/20/16 11:54 Urine Nitrite Neg (Negative) 08/20/16 11:54 Urine Bilirubin Neg (Negative) 08/20/16 11:54 Urine Urobilinogen < 2.0 mg/dL (<2.0) 08/20/16 11:54 Ur Leukocyte Esterase Lg (Negative) 08/20/16 11:54 Urine WBC (Auto) 2.0 /HPF (0.0-6.0) 08/20/16 11:54 Urine RBC (Auto) < 1.0 /HPF (0.0-6.0) 08/20/16 11:54 U Epithel Cells (Auto) < 1.0 /HPF (0-13.0) 08/20/16 11:54 Urine Mucus Few /HPF 08/20/16 11:54 Urine Creatinine 35.8 mg/dL (0.1-20.0) H 08/21/16 10:00 Urine Sodium 10 mEq/L 08/21/16 10:00 Urine Potassium 12.15 mEq/L 08/21/16 10:00 Urine Chloride 10.0 mEq/L (110-250) L 08/21/16 10:00 Urine Urea Nitrogen 433 08/21/16 10:00
[2016-08-22] MEDS: NACL 0.9% IV SCH (15:02)
[2016-08-22] MEDS: KCL IV SCH (15:02)
[2016-08-22] MEDS ORDERED: MAGNESIUM SULFATE 4GM/100ML 4 GM/100 ML BAG IV ONE (16:00)
[2016-08-22] MEDS: PERCOCET 5/325 PO PRN (16:36)
[2016-08-23] MEDS: KCL IV SCH (07:53)
[2016-08-23] MEDS: NACL 0.9% IV SCH (07:53)
[2016-08-23] MEDS: ROCEPHIN/NS 1 GM/50 ML 1 GM/50 ML BAG IV SCH (11:09)
[2016-08-23] MEDS: VITAMIN B-1 PO SCH (11:10)
[2016-08-23] MEDS: DIOVAN PO SCH ×2 (11:10→22:50)
[2016-08-23] MEDS: LOVENOX SUB-Q SCH (11:10)
[2016-08-23] MEDS: PERCOCET 5/325 PO PRN ×2 (11:11→22:54)
[2016-08-23] MEDS: PROCARDIA XL PO SCH (11:11)
[2016-08-23] MEDS: LOPRESSOR PO SCH ×2 (11:12→22:52)
[2016-08-23] MEDS: FOLVITE PO SCH (11:13)
[2016-08-23 11:51] LABS: BUN/Creatinine Ratio 22.5; Calcium 8.6 mg/dL (8.4-10.2); Chloride 107.9 mmol/L (98-107); Potassium 4.7 mmol/L (3.6-5.0)
[2016-08-23] MEDS: THERMAZENE 50 GRAM TP SCH ×2 (16:03→22:58)
[2016-08-23 18:06] LABS: Calcium 8.7 mg/dL (8.4-10.2); Magnesium 1.8 mg/dL (1.7-2.3); Potassium 4.8 mmol/L (3.6-5.0)
--- NOTE | 2016-08-23 18:07 | Progress Note ---
Assessment and Plan Assessment and plan: 55F who presented with weakness and diarrhea, t, admits to etoh abuse drinks up to 5 drinks daily 1. Diarrhea c diff ruled out, dc abx, continue supportive care, likely due to etoh abuse, diarrhea now resolved (2) Hyponatremia syndrome Likely due to alcohol potomania received IV saline, resolved (3) Hypokalemia and Hypomagnesemia Status post IV replacements, has now resolved (4) Chronic diastolic CHF (congestive heart failure) Optimize medications, she is currently euvolemic (5) SIRS (systemic inflammatory response syndrome) infectious workup negative, dc abx 6. Etoh abuse -[facility] protocol, thiamine and folate 7. Dysphagia Speech pathology evaluation appreciated, patient will be advanced to a pured diet 8. Sacral and pubic rash, likely due to chronic wetness, i.e Diaper rash continue wound care and ointments 9. Enterobacter and serratia UTI rx with 3 days of abx, C/S reviewed they are both sens to rocephin Disposition patient is planned to be discharged to [facility], tentative discharge tomorrow, awaiting family to provide all supporting documents History Interval history: She states that diarrhea is now resolved,. Denies any tremors, and has been having waxing and waning periods of delirium Hospitalist Physical - Physical exam Narrative exam: General: Disheveled appearance chronically ill HEENT: Dry mucous membranes cardiac: S1-S2 heard lungs: clear to auscultation, abdomen: soft, nontender, nondistended bowel sounds positive extremities: no edema clubbing or cyanosis Skin: Skin breakdown in diaper area Neuro: no focal deficit Psych: cognitive deficit - Constitutional Vitals: Temp Pulse Resp BP Pulse Ox 97.9 F 95 H 18 132/88 97 08/23/16 07:00 08/23/16 11:12 08/23/16 09:00 08/23/16 11:12 08/23/16 00:35 General appearance: Present: no acute distress, well-nourished Results - Labs CBC & Chem 7: 08/21/16 04:54 08/23/16 10:38 Labs: Laboratory Last Values WBC 15.1 K/mm3 (4.5-11.0) H 08/21/16 04:54 RBC 2.87 M/mm3 (3.65-5.03) L 08/21/16 04:54 Hgb 8.6 gm/dl (10.1-14.3) L 08/21/16 04:54 Hct 26.2 % (30.3-42.9) L 08/21/16 04:54 MCV 91 fl (79-97) 08/21/16 04:54 MCH 30 pg (28-32) 08/21/16 04:54 MCHC 33 % (30-34) 08/21/16 04:54 RDW 16.3 % (13.2-15.2) H 08/21/16 04:54 Plt Count 545 K/mm3 (140-440) H 08/21/16 04:54 Lymph % (Auto) 5.5 % (13.4-35.0) L 08/21/16 04:54 [place] % (Auto) 9.4 % (0.0-7.3) H 08/21/16 04:54 Eos % (Auto) 0.7 % (0.0-4.3) 08/21/16 04:54 Baso % (Auto) 0.1 % (0.0-1.8) 08/21/16 04:54 Lymph # 0.8 K/mm3 (1.2-5.4) L 08/21/16 04:54 [place] # 1.4 K/mm3 (0.0-0.8) H 08/21/16 04:54 Eos # 0.1 K/mm3 (0.0-0.4) 08/21/16 04:54 Baso # 0.0 K/mm3 (0.0-0.1) 08/21/16 04:54 Add Manual Diff Complete 08/20/16 11:55 Total Counted 100 08/20/16 11:55 Seg Neutrophils % 84.3 % (40.0-70.0) H 08/21/16 04:54 Seg Neuts % (Manual) 92.0 % (40.0-70.0) H 08/20/16 11:55 Band Neutrophils % 0 % 08/20/16 11:55 Lymphocytes % (Manual) 2.0 % (13.4-35.0) L 08/20/16 11:55 Reactive Lymphs % (Man) 0 % 08/20/16 11:55 Monocytes % (Manual) 5.0 % (0.0-7.3) 08/20/16 11:55 Eosinophils % (Manual) 1.0 % (0.0-4.3) 08/20/16 11:55 Basophils % (Manual) 0 % (0.0-1.8) 08/20/16 11:55 Metamyelocytes % 0 % 08/20/16 11:55 Myelocytes % 0 % 08/20/16 11:55 Promyelocytes % 0 % 08/20/16 11:55 Blast Cells % 0 % 08/20/16 11:55 Nucleated RBC % Not Reportable 08/20/16 11:55 Seg Neutrophils # 12.8 K/mm3 (1.8-7.7) H 08/21/16 04:54 Seg Neutrophils # Man 17.1 K/mm3 (1.8-7.7) H 08/20/16 11:55 Band Neutrophils # 0.0 K/mm3 08/20/16 11:55 Lymphocytes # (Manual) 0.4 K/mm3 (1.2-5.4) L 08/20/16 11:55 Abs React Lymphs (Man) 0.0 K/mm3 08/20/16 11:55 Monocytes # (Manual) 0.9 K/mm3 (0.0-0.8) H 08/20/16 11:55 Eosinophils # (Manual) 0.2 K/mm3 (0.0-0.4) 08/20/16 11:55 Basophils # (Manual) 0.0 K/mm3 (0.0-0.1) 08/20/16 11:55 Metamyelocytes # 0.0 K/mm3 08/20/16 11:55 Myelocytes # 0.0 K/mm3 08/20/16 11:55 Promyelocytes # 0.0 K/mm3 08/20/16 11:55 Blast Cells # 0.0 K/mm3 08/20/16 11:55 WBC Morphology Not Reportable 08/20/16 11:55 Hypersegmented Neuts Not Reportable 08/20/16 11:55 Hyposegmented Neuts Not Reportable 08/20/16 11:55 Hypogranular Neuts Not Reportable 08/20/16 11:55 Smudge Cells Not Reportable 08/20/16 11:55 Toxic Granulation Not Reportable 08/20/16 11:55 Toxic Vacuolation Not Reportable 08/20/16 11:55 Dohle Bodies Not Reportable 08/20/16 11:55 Pelger-Huet Anomaly Not Reportable 08/20/16 11:55 Emy Rods Not Reportable 08/20/16 11:55 Platelet Estimate Appears increased 08/20/16 11:55 Clumped Platelets Not Reportable 08/20/16 11:55 Plt Clumps, EDTA Not Reportable 08/20/16 11:55 Large Platelets Not Reportable 08/20/16 11:55 Giant Platelets Not Reportable 08/20/16 11:55 Platelet Satelliting Not Reportable 08/20/16 11:55 Plt Morphology Comment Not Reportable 08/20/16 11:55 RBC Morphology Not Reportable 08/20/16 11:55 Dimorphic RBCs Not Reportable 08/20/16 11:55 Polychromasia Few 08/20/16 11:55 Hypochromasia Not Reportable 08/20/16 11:55 Poikilocytosis Not Reportable 08/20/16 11:55 Anisocytosis Not Reportable 08/20/16 11:55 Microcytosis Not Reportable 08/20/16 11:55 Macrocytosis 1+ 08/20/16 11:55 Spherocytes Not Reportable 08/20/16 11:55 Pappenheimer Bodies Not Reportable 08/20/16 11:55 Sickle Cells Not Reportable 08/20/16 11:55 Target Cells 1+ 08/20/16 11:55 Tear Drop Cells Not Reportable 08/20/16 11:55 Ovalocytes Not Reportable 08/20/16 11:55 Helmet Cells Not Reportable 08/20/16 11:55 Smith-Cumings Bodies Not Reportable 08/20/16 11:55 [place] Rings Not Reportable 08/20/16 11:55 [place] Cells Not Reportable 08/20/16 11:55 Bite Cells Not Reportable 08/20/16 11:55 Crenated Cell Not Reportable 08/20/16 11:55 Elliptocytes Not Reportable 08/20/16 11:55 Acanthocytes (Spur) Not Reportable 08/20/16 11:55 Rouleaux Not Reportable 08/20/16 11:55 Hemoglobin C Crystals Not Reportable 08/20/16 11:55 Schistocytes Not Reportable 08/20/16 11:55 Malaria parasites Not Reportable 08/20/16 11:55 Prasad Bodies Not Reportable 08/20/16 11:55 Hem Pathologist Commnt No 08/20/16 11:55 PT 13.3 Sec. (12.2-14.9) 08/20/16 11:55 INR 1.02 (0.87-1.13) 08/20/16 11:55 APTT 36.0 Sec. (24.2-36.6) 08/20/16 11:55 Sodium 136 mmol/L (137-145) L 08/22/16 05:09 Potassium 4.7 mmol/L (3.6-5.0) D 08/23/16 10:38 Chloride 107.9 mmol/L (98-107) H 08/23/16 10:38 Carbon Dioxide 17 mmol/L (22-30) L 08/23/16 10:38 Anion Gap 19 mmol/L 08/23/16 10:38 BUN 27 mg/dL (7-17) H 08/23/16 10:38 Creatinine 1.2 mg/dL (0.7-1.2) 08/23/16 10:38 Estimated GFR 56 ml/min 08/23/16 10:38 BUN/Creatinine Ratio 22.50 % 08/23/16 10:38 Glucose 127 mg/dL (65-100) H 08/23/16 10:38 Lactic Acid 2.0 mmol/L (0.7-2.0) 08/20/16 11:55 Calcium 8.6 mg/dL (8.4-10.2) 08/23/16 10:38 Magnesium 1.3 mg/dL (1.7-2.3) L 08/22/16 05:09 Total Bilirubin 0.5 mg/dL (0.1-1.2) 08/21/16 04:54 AST 15 units/L (5-40) 08/21/16 04:54 ALT 12 units/L (7-56) 08/21/16 04:54 Alkaline Phosphatase 111 units/L (35-129) 08/21/16 04:54 Troponin T 0.023 ng/mL (0.00-0.029) 08/20/16 11:55 Total Protein 6.0 g/dL (6.3-8.2) L 08/21/16 04:54 Albumin 2.2 g/dL (3.9-5) L 08/21/16 04:54 Albumin/Globulin Ratio 0.6 % 08/21/16 04:54 Lipase 17 units/L (13-60) 08/20/16 11:55 Urine Color Yellow (Yellow) 08/20/16 11:54 Urine Turbidity Clear (Clear) 08/20/16 11:54 Urine pH 5.0 (5.0-7.0) 08/20/16 11:54 Ur Specific [place] 1.005 (1.003-1.030) 08/20/16 11:54 Urine Protein <15 mg/dl mg/dL (Negative) 08/20/16 11:54 Urine Glucose (UA) Neg mg/dL (Negative) 08/20/16 11:54 Urine Ketones Neg mg/dL (Negative) 08/20/16 11:54 Urine Blood Sm (Negative) 08/20/16 11:54 Urine Nitrite Neg (Negative) 08/20/16 11:54 Urine Bilirubin Neg (Negative) 08/20/16 11:54 Urine Urobilinogen < 2.0 mg/dL (<2.0) 08/20/16 11:54 Ur Leukocyte Esterase Lg (Negative) 08/20/16 11:54 Urine WBC (Auto) 2.0 /HPF (0.0-6.0) 08/20/16 11:54 Urine RBC (Auto) < 1.0 /HPF (0.0-6.0) 08/20/16 11:54 U Epithel Cells (Auto) < 1.0 /HPF (0-13.0) 08/20/16 11:54 Urine Mucus Few /HPF 08/20/16 11:54 Urine Creatinine 35.8 mg/dL (0.1-20.0) H 08/21/16 10:00 Urine Sodium 10 mEq/L 08/21/16 10:00 Urine Potassium 12.15 mEq/L 08/21/16 10:00 Urine Chloride 10.0 mEq/L (110-250) L 08/21/16 10:00 Urine Urea Nitrogen 433 08/21/16 10:00
[2016-08-24 05:34] LABS: Anion Gap 17 mmol/L; BUN/Creatinine Ratio 21.81; Blood Urea Nitrogen 24 mg/dL (7-17); Calcium 8.7 mg/dL (8.4-10.2); Carbon Dioxide 20 mmol/L (22-30); Chloride 107.5 mmol/L (98-107); Glucose 93 mg/dL (65-100); Magnesium 1.6 mg/dL (1.7-2.3); Potassium 5.1 mmol/L (3.6-5.0); Sodium 139 mmol/L (137-145)
--- NOTE | 2016-08-24 09:02 | Query-Infection ---
"Dear Date:_08/24/16 Pulp Refiner Operator/CDS:Su Kemp Phone#:_[phone] Exercise your independent professional judgment when responding to this query. Questions asked do not imply a particular answer is desired or expected. We greatly appreciate your clarification on this issue. Clinical Documentation States: Dr. Perrin H&P on 08/20: 55 y/o AAF poor historian comes in for loose watery stools 4 to 5 times a day for last 4 days.Feels weak.No fever or chills.Has hx of HTN CHF,Copd.No N/V.No SOB Clinical findings show: (please check applicable parameters) Infection, known /suspected, with some of the following indicators; Specify the infection: 9. Enterobacter and serratia UTI rx with 3 days of abx, C/S reviewed they are both sens to rocephin WBC: 18.6 HR: 114 RR: 20 3 General parameters [ ] Fever (core temp >38.30C or 100.40F) [ ] Hypothermia (core temp <36C) [ ] Heart rate >90 bpm [ ] Tachypnea: >20 bpm or pCO2 < 32 mmHg [ ] Altered mental status [ ] Significant edema / +ve fluid balance (>20 ml/kg 24 h) [ ] Hyperglycemia (Bl. glucose >110 mg/dl) w/o diabetes Inflammatory parameters [ ] Leukocytosis (white blood cell count >12,000/l) [ ] Leukopenia (white blood cell count <4,000/l) [ ] Bandemia (immature WBC > 10%) [ ] Leucocyte Left Shift [ ] Plasma procalcitonin>2 SD above the normal value Hemodynamic and tissue perfusion parameters [ ] Arterial hypotension(SBP <90 mmHg, MAP <70 mmHg,or a SBP drop >40 mmHg in adults) [ ] Hyperlactatemia (>3 mmol/l) [ ] Anion Gap (> 11mEG/l) [ ] Decreased capillary refill or mottling Organ dysfunction parameters [ ] Arterial hypoxemia (PaO2/FIO2 <300) [ ] Creatinine increase =0.5 mg/dl [ ] Acute oliguria (urine output <0.5 ml | kg |h or 45 mM/l for at least 2 hrs) [ ] Coagulation abnormalities (INR >1.5 or activated partial thromboplastin time >60 s) [ ] Ileus (absent ana wel sounds) [ ] Thrombocytopenia (platelet count <100,000/l) [ ] Hyperbilirubinemia (plasma total bilirubin >4 mg/dl) According to the clinical indications above, can Bacteremia be further specified? If so, please indicate below and in your Progress Notes and/ or Discharge Summary. Indicate if the condition was present on admission. PHYSICIAN RESPONSE: [ x] Sepsis [ ] Severe Sepsis [ ] Septic Shock [ ] Septicemia [ ] Sepsis now resolved [ ] SIRS due to non-infectious cause with organ dysfunction [ ] SIRS due to non-infectious cause without organ dysfunction [ ] Other: [ ] Comment/Explanation: Present on Admission: [x ] Yes (Y) [ ] Clinically undeterminable (W) [ ] No (N) [ ] Ruled Out Please also document response in your Progress Notes and/or Discharge Summary and indicate if the condition was present on admission Notes: SIRS/ SIRS WITH ORGAN DYSFUNCTION Systemic inflammatory response syndrome (SIRS) generally refers to the systemic response to trauma/boothe or other insult such as Acute Myocardial Infarction, Acute Pancreatitis, and Major Surgery with symptoms including fever, tachycardia , tachypnea, and leukocytosis (1). BACTEREMIA Presence of viable bacteria in the circulating blood (2). This term is reserved for patients that do not manifest above SIRS response. SEPTICEMIA Generally refers to a systemic disease associated with the presence of pathological microorganisms or toxins in the blood, which can include bacteria, viruses, fungi or other organisms (1). SEPSIS Generally refers to SIRS due infection (1). SEVERE SEPSIS Generally refers to sepsis associated with acute organ dysfunction (1). SEPTIC SHOCK Generally refers to circulatory failure associated with severe sepsis (2), and defined as hypotension or hypoperfusion despite adequate fluid resuscitation (1 hour) (3). REFERENCES: 1. [employer]/Society of Critical Care Medicine Consensus Conference. Definitions for sepsis and organ failure and guidelines for the use of innovative therapies in sepsis. Critical Care Med 1992;20:864 - 74. 2. Chidi elam MM, Stephanie MP, Bayron TIDWELL, Johnathon E, Andrew D, Vincenzo D, Ma J, [place] SM , Jonathon JL, Stephanie G; International Sepsis Definitions Conference. 2001 SCCM/ESICM/ACCP/ATS/SIS International Sepsis Definitions Conference. Intensive Care Med. 2002 Apr;29(4):530-8. Epub 2002Sep 04. Review. PubMed PMID:[id number] 3. ICD-9-CM Official Guidelines for Coding and Reporting 4. Medscape Drugs, Diseases and Procedures references 5. [employer] Textbook of Internal Medicine. 18th Edition MTDD"
--- NOTE | 2016-08-24 09:05 | Query- Nutrition ---
Deamariam Monson Date:_08/24/16 Facs Teacher/CDS:Su Kemp Phone#:_[phone] Exercise your independent professional judgment when responding to query. Questions asked do not imply a particular answer is desired or expected. We greatly appreciate your clarification on this issue. Clinical Documentation States: Dr. Perrin H&P on 08/20: 55 y/o AAF poor historian comes in for loose watery stools 4 to 5 times a day for last 4 days.Feels weak.No fever or chills.Has hx of HTN CHF,Copd.No N/V.No SOB Clinical Findings Show: BMI:25.0 Albumin: 2.7; 2.2 Lymphocytes: 400 Alcoholic on CIWA protocol, Thiamine and folate Please select the most appropriate option 3 [x] Mild Malnutrition [] Mild - Moderate Malnutrition [] Moderate - Severe Malnutrition [] Severe Malnutrition Serum Albumin 2.8 to 3.4 g/dl or Pre-albumin 5 to 17 mg/dl1,2 Inadequate nutritional intake1,2,3,4 NPO > 5 days Weight loss: 5% in 1 month or 7.5% in 3 months or 10% in 6 months1, 3,4 BMI 16 to 18.4 or Weight <90% of ideal body weight1,2,3,4 Serum Albumin < 2.8 g/ dl1,2 Lymphocytes < 1500/ L2 Inadequate nutritional intake3, high stress e.g. major trauma, sepsis,pancreatitis, boothe etc. Decubitus ulcers1,2, , skin breakdown2, easy hair pluckability2 Weight <80% standard for height2 Triceps skin fold <3 mm2 Mid-arm muscle circumference <15 cm2 Creatinine-height index <60% standard2 [ ] Cachexia [ ] Emaciated w/Malnutrition [ ] Other: [ ] Unable to determine [ ] Comment/Explanation: Present on Admission: [ x] Yes (Y) [ ] Clinically undeterminable (W) [ ] No (N) Please also document response in your Progress Notes and/or Discharge Summary and indicate if the condition was present on admission. JALEND
--- NOTE | 2016-08-24 09:07 | Query- Renal Failure ---
Dear uigbo Date:__08/24/16 Construction Electrician/CDS:Su Kemp Phone#:_[phone] Exercise your independent professional judgment when responding to query. Questions asked do not imply a particular answer is desired or expected. We greatly appreciate your clarification on this issue. Clinical Documentation States: Dr. Perrin H&P on 08/20: 55 y/o AAF poor historian comes in for loose watery stools 4 to 5 times a day for last 4 days.Feels weak.No fever or chills.Has hx of HTN CHF,Copd.No N/V.No SOB Clinical Findings Show: 08/21 08/24 Creat: 1.5 1.1 Please clarify if you mean: Acute Renal Failure with or due to: [ ] Tubular Necrosis [ ] Medullary Necrosis [ x] Vasomotor Nephropathy [ ] Shock Kidney [ ] Tubular Nephrosis [ ] Renal Tubular Stasis [ ] Cortical Necrosis [ ] Acute Renal Failure (unspecified) [ ] Lower Tubular Nephrosis [ ] Other: [ ] Not Applicable Present on Admission: [x] Yes (Y) [ ] Clinically undeterminable (W) [ ] No (N) Please also document response in your Progress Notes and/or Discharge Summary and indicate if the condition was present on admission. MTDD
[2016-08-24] MEDS: ROCEPHIN/NS 1 GM/50 ML 1 GM/50 ML BAG IV SCH (11:00)
[2016-08-24] MEDS: LOVENOX SUB-Q SCH (11:01)
[2016-08-24] MEDS: DIOVAN PO SCH (11:01)
[2016-08-24] MEDS: VITAMIN B-1 PO SCH (11:02)
[2016-08-24] MEDS: PROCARDIA XL PO SCH (11:02)
[2016-08-24] MEDS: FOLVITE PO SCH (11:03)
[2016-08-24] MEDS: LOPRESSOR PO SCH (11:03)
[2016-08-24] MEDS: THERMAZENE 50 GRAM TP SCH (11:04)
--- NOTE | 2016-08-24 12:13 | Discharge Summary ---
Providers - Providers Date of Admission: 08/20/16 17:15 Attending physician: ISIS CARLSON MD 08/21/16 03:14 Consult to Wound/ET Nurse [CONS] Routine Reason For Exam: wound eval 08/21/16 13:46 Speech Therapy Evaluation and Treat [CONS] Stat Reason For Exam: dysphagia, coughing upon eating Primary care physician: CONCRETE CRAFTSMAN Hospitalization Condition: Stable Hospital course: 55F who presented with weakness and diarrhea, t, admits to etoh abuse drinks up to 5 drinks daily 1. Diarrhea c diff ruled out, dc abx, continue supportive care, likely due to etoh abuse, diarrhea now resolved (2) Hyponatremia syndrome Likely due to alcohol potomania received IV saline, resolved (3) Hypokalemia and Hypomagnesemia Status post IV replacements, has now resolved (4) Chronic diastolic CHF (congestive heart failure) Optimize medications, she is currently euvolemic (5) SIRS (systemic inflammatory response syndrome) infectious workup negative, dc abx 6. Etoh abuse -CIWA protocol, thiamine and folate 7. Dysphagia Speech pathology evaluation appreciated, patient will be advanced to a pured diet 8. Sacral and pubic rash, likely due to chronic wetness, i.e Diaper rash continue wound care and ointments 9. Enterobacter and serratia UTI rx with 3 days of abx, C/S reviewed they are both sens to rocephin Disposition patient is planned to be discharged to [facility], tentative discharge tomorrow, awaiting family to provide all supporting documents Disposition: DC/[place] SNF [facility] CERT Time spent for discharge: 35 minutes Core Measure Documentation - Palliative Care Palliative Care/ Comfort Measures: Not Applicable - Core Measures Any of the following diagnoses?: none Exam - Physical Exam Narrative exam: General: Disheveled appearance chronically ill HEENT: Dry mucous membranes cardiac: S1-S2 heard lungs: clear to auscultation, abdomen: soft, nontender, nondistended bowel sounds positive extremities: no edema clubbing or cyanosis Skin: Skin breakdown in diaper area Neuro: no focal deficit Psych: cognitive deficit - Constitutional Vitals: Temp Pulse Resp BP Pulse Ox 98.3 F 89 20 150/69 90 08/24/16 07:25 08/24/16 11:03 08/24/16 07:25 08/24/16 11:03 08/24/16 07:25 Plan Follow up with: PRIMARY CARE, [Primary Care Provider] - 3-5 Days Prescriptions: Folic Acid [Folvite] 1 mg PO QDAY #30 tablet HYDROcodone/APAP 5-325 [[place] 5/325] 1 each PO Q4HR PRN #15 tablet PRN Reason: Pain oxyCODONE /ACETAMINOPHEN [Percocet 5/325 mg] 1 tab PO Q6H PRN #10 tablet PRN Reason: Pain, Moderate (4-6) SILVER sulfADIAZINE 50 GRAM [Thermazene 50 Gram] 1 applic TP BID #1 tube Thiamine [Vitamin B-1] 100 mg PO QDAY #30 tablet
[2016-08-24] MEDS ORDERED: MAGNESIUM SULFATE 4GM/100ML 4 GM/100 ML BAG IV ONE (13:00)
[2016-08-24 14:52] VITALS: BP 157/106
== END 2016-08-24 16:00 | DRG 871 ==
LOC: ED 10:31 → 3A 17:15
PROVIDERS: ADMIT Internal Medicine; ATTEND Internal Medicine
DX: A41.9 Sepsis, unspecified organism (principal); N17.0 Acute kidney failure with tubular necrosis; E87.6 Hypokalemia; N39.0 Urinary tract infection, site not specified; E87.1 Hypo-osmolality and hyponatremia; R13.10 Dysphagia, unspecified; I11.0 Hypertensive heart disease with heart failure; J44.9 Chronic obstructive pulmonary disease, unspecified; M19.90 Unspecified osteoarthritis, unspecified site; F17.210 Nicotine dependence, cigarettes, uncomplicated; I50.32 Chronic diastolic (congestive) heart failure; F10.10 Alcohol abuse, uncomplicated; E83.42 Hypomagnesemia; L22 Diaper dermatitis; B95.2 Enterococcus as the cause of diseases classified elsewhere; B96.89 Other specified bacterial agents as the cause of diseases classified elsewhere; Z82.49 Family history of ischemic heart disease and other diseases of the circulatory system; Z79.899 Other long term (current) drug therapy; Z98.890 Other specified postprocedural states; E44.1 Mild protein-calorie malnutrition; Z68.25 Body mass index [BMI] 25.0-25.9, adult
CPT/HCPCS: 36415; 71010; 80048; 80053; 81001; 82140; 82436; 82570; 83690; 83735; 84132; 84133; 84300; 84484; 84520; 85007; 85025; 85610; 85730; 87040; 87076; 87086; 87186; 87493; 90686; 90732; 93005; 93010; 96361; 96365; 96367; 96372; 96375; J0696; J1650; J1956; J2060; J3475; J3480; J7030; Q0162

== ENCOUNTER 2017-10-22 07:59 | Outpatient (CLI) | payer MEDICAID ==
[2017-10-22] MEDS ORDERED: PROVENTIL IH ONE (09:05)
--- NOTE | 2017-10-25 01:13 | Pulmonary Function Test ---
SPIROMETRY: FVC 1.37 liters, which is 60% of the predicted. FEV1 is 1.07 liters, which is 59% of predicted. FEV1/FVC ratio is 78. Flow volume loop FEF 25-75% is 0.89 liters per second, which is 47% of predicted and MVV is 39% of predicted. The patient's TLC 2.88 liters, which is 64% of predicted. DLCO is 63% of the predicted. IMPRESSION: 1. Moderate restrictive ventilatory impairment as evidenced by decrease in TLC. 2. Decrease in DLCO. JOB# [id number] CHRIS/DERECK
== END 2017-10-22 08:00 | disposition home or self-care (01) ==
LOC: PF 07:59
PROVIDERS: ATTEND Internal Medicine Hematology & Oncology
DX: J44.9 Chronic obstructive pulmonary disease, unspecified (principal); I50.30 Unspecified diastolic (congestive) heart failure; F17.210 Nicotine dependence, cigarettes, uncomplicated
CPT/HCPCS: 94617

== ENCOUNTER 2018-01-06 08:04 | Emergency (ER) | payer MEDICAID ==
[2018-01-06] MEDS ORDERED: ARTIFICIAL TEARS OPHTH OINT OU PRN (08:11)
[2018-01-06] MEDS ORDERED: ZEMURON IV ONE ×2 (08:11→14:49)
[2018-01-06] MEDS ORDERED: XYLOCAINE CARDIAC IV ONE ×2 (08:11→14:49)
[2018-01-06] MEDS ORDERED: AMIDATE IV ONE ×2 (08:11→14:49)
[2018-01-06] MEDS ORDERED: SUBLIMAZE IV ONE (08:11)
[2018-01-06] MEDS ORDERED: VASELINE LIP THERAPY TP PRN (08:11)
[2018-01-06 08:17] LABS: Basophils # (Auto) 0.1 K/mm3 (0.0-0.1); Eosinophils # (Auto) 0.2 K/mm3 (0.0-0.4); Eosinophils % (Auto) 2.5 % (0.0-4.3); Hematocrit 36.5 % (30.3-42.9); Hemoglobin 11.7 gm/dl (10.1-14.3); Lymphocytes # (Auto) 3.8 K/mm3 (1.2-5.4); Lymphocytes % (Auto) 38.6 % (13.4-35.0); Mean Corpuscular HGB Conc 32 % (30-34); Mean Corpuscular Hemoglobin 26 pg (28-32); Mean Corpuscular Volume 82 fl (79-97); Monocytes # (Auto) 1.4 K/mm3 (0.0-0.8); Platelet Count 338 K/mm3 (140-440); Red Blood Count 4.45 M/mm3 (3.65-5.03); Red Cell Distribution Width 19.8 % (13.2-15.2)
--- NOTE | 2018-01-06 08:19 | Emergency Department Report ---
ED Neuro Deficit HPI - General Chief Complaint: Altered Mental Status Stated Complaint: STROKE Time Seen by Provider: 01/06/18 08:06 Source: EMS (ems notes not available at time of chart dictation), RN notes reviewed, old records reviewed Limitations: Altered Mental Status, Physical Limitation - History of Present Illness Initial Comments: This is a 57-year-old female who is unknown to this provider previously, brought to the hospital by EMS as a possible code stroke. As per verbal report from EMS, patient's last known well time was 7:15 AM. Apparently she was awake and alert and talking normally, and appeared to have a seizure and collapsed. EMS was contacted, and the patient was given 2.5 mg of Versed in the field which terminated her seizure. EMS then attempted intubation but was unsuccessful secondary to the patient's being clenched up in the jaw. Upon arrival to the ER, the patient was breathing agonally, and not moving her extremities. She was placed on a nasal cannula, received bag valve mask ventilation, was given 100 mg of lidocaine, 20 mg of etomidate, 100 mg of rocuronium, and intubated using standard rapid sequence induction techniques. Her fingerstick was within normal limits. Patient was then called overhead as a code stroke. Given her altered mental status, possible seizure, respiratory failure, patient is emergently and administratively consented by myself for emergent angiogram of the head and neck to exclude basilar artery, posterior circulation thrombosis. While the patient was in the ER initially, no family was available for collateral information, additional history or informed consent. A noncontrast CT scan of the brain was negative for hemorrhage. An angiogram was negative for significant disease. The CT scan did demonstrate evidence of left-sided mastoiditis, and left-sided otitis media. Case was discussed with consult in stroke neurologist, Dr. Chuck Bazzi, we both agree that the patient is not a TPA candidate given the current clinical presentation and objective data. He is in agreement with treating the patient empirically for community-acquired meningitis. Patient was given Decadron, ceftriaxone, vancomycin, and resuscitated according to the sepsis pathway. Given that she is intubated and in the status epilepticus algorithm with possible meningitis that may require either neurosurgical or ENT consultation, in addition to continuous EEG monitoring, the patient will be transferred to the [facility] for aforementioned services not available at this facility. The case was discussed with Dr. Italia Viveros, neuro critical care physician at [place], who accepted the patient as a transfer. -: unknown Location: altered Presenting Symptoms: Present: Altered Mental Status History of same: Yes Place: other (snf) Severity: Unable to Determine Quality: other (per hpi) Improves With: other (per hpi) Worsens With: other (per hpi) On Anticoagulants: No Context: sudden onset, other (per hpi) Associated Symptoms: other (per hpi) Treatments Prior to Arrival: other (per hpi) - Related Data Home Medications: Previous Rx's Medication Instructions Recorded Last Taken Type Metoprolol [Lopressor TAB] 12.5 mg PO BID #60 tablet 04/30/16 Unknown Rx NIFEdipine XL [Procardia Xl] 60 mg PO QDAY #30 tablet 04/30/16 Unknown Rx Valsartan [Diovan] 160 mg PO BID #60 tablet 04/30/16 Unknown Rx HYDROcodone/APAP 5-325 [[place] 1 each PO Q4HR PRN #15 tablet 08/20/16 Unknown Rx 5/325] Folic Acid [Folvite] 1 mg PO QDAY #30 tablet 08/24/16 Unknown Rx SILVER sulfADIAZINE 50 GRAM 1 applic TP BID #1 tube 08/24/16 Unknown Rx [Thermazene 50 Gram] Thiamine [Vitamin B-1] 100 mg PO QDAY #30 tablet 08/24/16 Unknown Rx oxyCODONE /ACETAMINOPHEN [Percocet 1 tab PO Q6H PRN #10 tablet 08/24/16 Unknown Rx 5/325 mg] Allergies/Adverse Reactions: Allergies Allergy/AdvReac Type Severity Reaction Status Date / Time No Known Allergies Allergy Verified 11/02/15 13:46 ED Review of Systems ROS: Stated complaint: STROKE Other details as noted in HPI Comment: Unobtainable due to pts medical conditions ED Past Medical Hx - Past Medical History Hx Hypertension: Yes Hx CVA: No Hx Congestive Heart Failure: Yes Hx Diabetes: No Hx Arthritis: Yes Hx Asthma: No Hx COPD: Yes - Social History Smoking Status: Current Every Day Smoker - Medications Home Medications: Home Medications Medication Instructions Recorded Confirmed Last Taken Type Metoprolol [Lopressor TAB] 12.5 mg PO BID #60 tablet 04/30/16 Unknown Rx NIFEdipine XL [Procardia Xl] 60 mg PO QDAY #30 tablet 04/30/16 Unknown Rx Valsartan [Diovan] 160 mg PO BID #60 tablet 04/30/16 Unknown Rx HYDROcodone/APAP 5-325 [[place] 1 each PO Q4HR PRN #15 tablet 08/20/16 Unknown Rx 5/325] Folic Acid [Folvite] 1 mg PO QDAY #30 tablet 08/24/16 Unknown Rx SILVER sulfADIAZINE 50 GRAM 1 applic TP BID #1 tube 08/24/16 Unknown Rx [Thermazene 50 Gram] Thiamine [Vitamin B-1] 100 mg PO QDAY #30 tablet 08/24/16 Unknown Rx oxyCODONE /ACETAMINOPHEN [Percocet 1 tab PO Q6H PRN #10 tablet 08/24/16 Unknown Rx 5/325 mg] ED Neuro Physical Exam - General Limitations: Altered Mental Status, Physical Limitation General appearance: obtunded Suspected Stroke: No - Head Head exam: Present: atraumatic, normocephalic - Eye Eye exam: Present: PERRL - ENT ENT exam: Present: normal orophraynx, other (the right external auditory canal and tympanic membrane is within normal limits. The left external auditory canal has purulent material in it. The left tympanic membrane is not visualized secondary to external auditory canal purulence). Absent: TM's normal bilaterally, normal external ear exam - Neck Neck exam: Present: normal inspection, full ROM - Respiratory Respiratory exam: Present: rhonchi - Cardiovascular Cardiovascular Exam: Present: normal rhythm, tachycardia, normal heart sounds - GI/Abdominal GI/Abdominal exam: Present: soft, hernia. Absent: distended, tenderness, guarding, rebound, rigid - Rectal Rectal exam: Present: normal inspection, other (escorted by rn zaida jennings) - Extremities Exam Extremities exam: Present: normal inspection. Absent: pedal edema, joint swelling, calf tenderness - Back Exam Back exam: Absent: tenderness, CVA tenderness (R), paraspinal tenderness, vertebral tenderness - Neurological Exam Neurological exam: Present: altered - NIHSS Assessment Interval: Baseline 1a. Level of Consciousness: responds reflex/autonomic 1b. LOC Questions: answers no questions correctly 1c. LOC Commands: performs no tasks correctly 2. Best Gaze: normal (unable to assess) 3. Visual: no visual loss (unable to assess) 5b. Motor Arm Right: no movement 5a. Motor Arm Left: no movement 6a. Motor Leg Left: no movement 6b. Motor Leg Right: no movement 7. Limb Ataxia: amputation 8. Sensory: severe/total sensory loss 9. Best Language: severe aphasia 10. Dysarthria: intubated or other barrier 11. Extinction/Inattention: profound inattention - Psychiatric Psychiatric exam: Present: other (nonverbal, unable to assess) - Skin Skin exam: Present: dry ED Course Vital Signs 01/06/18 01/06/18 01/06/18 08:04 08:11 08:15 Temperature 98.8 F Pulse Rate 145 H Respiratory Rate Blood Pressure 261/172 160/112 162/110 O2 Sat by Pulse 100 Oximetry 01/06/18 01/06/18 01/06/18 08:40 08:46 09:00 Temperature Pulse Rate 83 84 82 Respiratory 17 17 Rate Blood Pressure 162/110 162/110 167/99 O2 Sat by Pulse 100 100 100 Oximetry 01/06/18 01/06/18 01/06/18 09:12 09:15 09:30 Temperature Pulse Rate 83 82 91 H Respiratory 18 20 Rate Blood Pressure 167/99 172/105 172/105 O2 Sat by Pulse 98 100 100 Oximetry 01/06/18 01/06/18 01/06/18 09:45 10:00 10:15 Temperature Pulse Rate 80 82 70 Respiratory 17 15 18 Rate Blood Pressure 180/105 189/153 166/103 O2 Sat by Pulse 97 95 100 Oximetry 01/06/18 01/06/18 01/06/18 10:30 10:45 11:00 Temperature Pulse Rate 64 61 68 Respiratory 17 11 L 19 Rate Blood Pressure 164/94 162/97 155/102 O2 Sat by Pulse 100 100 98 Oximetry 01/06/18 01/06/18 01/06/18 11:16 11:30 11:45 Temperature Pulse Rate 48 L 51 L 46 L Respiratory 20 18 18 Rate Blood Pressure 84/58 90/60 90/64 O2 Sat by Pulse 96 93 95 Oximetry 01/06/18 01/06/18 12:00 12:15 Temperature Pulse Rate 45 L 50 L Respiratory 18 18 Rate Blood Pressure 101/71 126/87 O2 Sat by Pulse 91 Oximetry - EJ/Peripheral Line Neck L Time Out Performed: Yes Indications: multiple IV sites needed Skin Cleansed in Sterile Fashion: Yes Size: 18 Dressing Placed: Tegaderm Patient Tolerated Procedure: well - Intubation Time Out Performed: No (emergency situation) Sedative: Etomidate Mg Given: 20 Paralytic: Rocuronium Mg Given: 100 Laryngoscope: Delores Size: 4 Assist Device Used: Bougie ET Tube Size: 7.5 Tube Secured Depth (cm): 23 Tube Secured Location: teeth Tube Placement Confirmation: equal breath sounds bilat, no breath sounds over epi, confirmation by capnometr Patient Tolerated Procedure: well Intubation Complications: difficult intubation Additional Comments: Patient placed on a nasal cannula at 15 L/m. Receives [id number] ventilation. Towel rolls inserted underneath the shoulder to align the ear to the sternal notch. Direct laryngoscopy performed with Delores 4 blade, epiglottis is visualized, however hypopharyngeal structures are difficult to visualize. A bougie catheter is introduced, and palpable clicks are appreciated , and the 7.5 endotracheal tube is then inserted over the bougie device, appropriate post procedure capnography color change. The patient did not desaturate during the procedure. - Lumbar Puncture Consent Obtained: verbal consent (patient's gave verbal consent) Time Out Performed: Yes Indication for Procedure: change in mental status Patient Position: left lateral decubitus Skin Prep: Povidone-Iodine 1% Local Anesthetic Used: Lidocaine 2% Amount of anesthesia used (mls): 8 Spinal Needle Gauge: Other (18 g needle) Spinal Needle Length: 3in Interspace Used: L4-L5 Closing Pressure (cmH20): 13 Fluid Initially Obtained: cloudy, bloody Complications: traumatic tap Patient Tolerated Procedure: well - Lab Data Result diagrams: 01/06/18 08:00 01/06/18 08:00 Lab Results 01/06/18 01/06/18 01/06/18 Range/Units 08:00 08:00 08:00 WBC 9.8 (4.5-11.0) K/mm3 RBC 4.45 (3.65-5.03) M/mm3 Hgb 11.7 (10.1-14.3) gm/dl Hct 36.5 (30.3-42.9) % MCV 82 (79-97) fl MCH 26 L (28-32) pg MCHC 32 (30-34) % RDW 19.8 H (13.2-15.2) % Plt Count 338 (140-440) K/mm3 Lymph % (Auto) 38.6 H (13.4-35.0) % [place] % (Auto) 14.0 H (0.0-7.3) % Eos % (Auto) 2.5 (0.0-4.3) % Baso % (Auto) 1.0 (0.0-1.8) % Lymph # 3.8 (1.2-5.4) K/mm3 [place] # 1.4 H (0.0-0.8) K/mm3 Eos # 0.2 (0.0-0.4) K/mm3 Baso # 0.1 (0.0-0.1) K/mm3 Seg Neutrophils % 43.9 (40.0-70.0) % Seg Neutrophils # 4.3 (1.8-7.7) K/mm3 PT 12.2 (12.2-14.9) Sec. INR 0.87 (0.87-1.13) APTT 33.0 (24.2-36.6) Sec. Thrombin Time 17.5 (15.1-19.6) Sec. POC ABG pH (7.35-7.45) POC ABG pCO2 (35-45) POC ABG pO2 (80-105) POC ABG HCO3 POC ABG Total CO2 POC ABG O2 Sat POC ABG Base Excess FiO2 % Sodium 144 (137-145) mmol/L Potassium 3.0 L (3.6-5.0) mmol/L Chloride 104.3 (98-107) mmol/L Carbon Dioxide 22 (22-30) mmol/L Anion Gap 21 mmol/L BUN 29 H (7-17) mg/dL Creatinine 1.7 H (0.7-1.2) mg/dL Estimated GFR 37 ml/min BUN/Creatinine Ratio 17 % Glucose 203 H (65-100) mg/dL Lactic Acid (0.7-2.0) mmol/L Calcium 8.7 (8.4-10.2) mg/dL Magnesium (1.7-2.3) mg/dL Total Bilirubin 0.20 (0.1-1.2) mg/dL AST 36 (5-40) units/L ALT 29 (7-56) units/L Alkaline Phosphatase 169 H (35-129) units/L Total Creatine Kinase 120 (30-135) units/L CK-MB (CK-2) 3.6 (0.0-4.0) ng/mL CK-MB (CK-2) Rel Index 3.0 (0-4) Troponin T < 0.010 (0.00-0.029) ng/mL Total Protein 7.6 (6.3-8.2) g/dL Albumin 3.9 (3.9-5) g/dL Albumin/Globulin Ratio 1.1 % CSF Appearance CSF Color CSF WBC (1-10) /mm3 CSF RBC (0-0) /mm3 CSF Seg Neutrophils (0-6) % CSF Lymphocytes % (40-80) % CSF Reactive Lymphs % CSF Monocytes % (15-45) % CSF Eosinophils % CSF Basophils CSF Pathologist Review CSF Glucose mg/dL CSF Total Protein mg/dL Salicylates (2.8-20.0) mg/dL Acetaminophen (10.0-30.0) ug/mL Plasma/Serum Alcohol (0-0.07) % 01/06/18 01/06/18 01/06/18 Range/Units 08:00 08:00 08:00 WBC (4.5-11.0) K/mm3 RBC (3.65-5.03) M/mm3 Hgb (10.1-14.3) gm/dl Hct (30.3-42.9) % MCV (79-97) fl MCH (28-32) pg MCHC (30-34) % RDW (13.2-15.2) % Plt Count (140-440) K/mm3 Lymph % (Auto) (13.4-35.0) % [place] % (Auto) (0.0-7.3) % Eos % (Auto) (0.0-4.3) % Baso % (Auto) (0.0-1.8) % Lymph # (1.2-5.4) K/mm3 [place] # (0.0-0.8) K/mm3 Eos # (0.0-0.4) K/mm3 Baso # (0.0-0.1) K/mm3 Seg Neutrophils % (40.0-70.0) % Seg Neutrophils # (1.8-7.7) K/mm3 PT (12.2-14.9) Sec. INR (0.87-1.13) APTT (24.2-36.6) Sec. Thrombin Time (15.1-19.6) Sec. POC ABG pH (7.35-7.45) POC ABG pCO2 (35-45) POC ABG pO2 (80-105) POC ABG HCO3 POC ABG Total CO2 POC ABG O2 Sat POC ABG Base Excess FiO2 % Sodium (137-145) mmol/L Potassium (3.6-5.0) mmol/L Chloride (98-107) mmol/L Carbon Dioxide (22-30) mmol/L Anion Gap mmol/L BUN (7-17) mg/dL Creatinine (0.7-1.2) mg/dL Estimated GFR ml/min BUN/Creatinine Ratio % Glucose (65-100) mg/dL Lactic Acid (0.7-2.0) mmol/L Calcium (8.4-10.2) mg/dL Magnesium 1.70 (1.7-2.3) mg/dL Total Bilirubin (0.1-1.2) mg/dL AST (5-40) units/L ALT (7-56) units/L Alkaline Phosphatase (35-129) units/L Total Creatine Kinase (30-135) units/L CK-MB (CK-2) (0.0-4.0) ng/mL CK-MB (CK-2) Rel Index (0-4) Troponin T (0.00-0.029) ng/mL Total Protein (6.3-8.2) g/dL Albumin (3.9-5) g/dL Albumin/Globulin Ratio % CSF Appearance CSF Color CSF WBC (1-10) /mm3 CSF RBC (0-0) /mm3 CSF Seg Neutrophils (0-6) % CSF Lymphocytes % (40-80) % CSF Reactive Lymphs % CSF Monocytes % (15-45) % CSF Eosinophils % CSF Basophils CSF Pathologist Review CSF Glucose mg/dL CSF Total Protein mg/dL Salicylates < 0.3 L (2.8-20.0) mg/dL Acetaminophen (10.0-30.0) ug/mL Plasma/Serum Alcohol < 0.01 (0-0.07) % 01/06/18 01/06/18 01/06/18 Range/Units 08:00 09:02 09:40 WBC (4.5-11.0) K/mm3 RBC (3.65-5.03) M/mm3 Hgb (10.1-14.3) gm/dl Hct (30.3-42.9) % MCV (79-97) fl MCH (28-32) pg MCHC (30-34) % RDW (13.2-15.2) % Plt Count (140-440) K/mm3 Lymph % (Auto) (13.4-35.0) % [place] % (Auto) (0.0-7.3) % Eos % (Auto) (0.0-4.3) % Baso % (Auto) (0.0-1.8) % Lymph # (1.2-5.4) K/mm3 [place] # (0.0-0.8) K/mm3 Eos # (0.0-0.4) K/mm3 Baso # (0.0-0.1) K/mm3 Seg Neutrophils % (40.0-70.0) % Seg Neutrophils # (1.8-7.7) K/mm3 PT (12.2-14.9) Sec. INR (0.87-1.13) APTT (24.2-36.6) Sec. Thrombin Time (15.1-19.6) Sec. POC ABG pH 7.356 (7.35-7.45) POC ABG pCO2 46.0 H (35-45) POC ABG pO2 121 H (80-105) POC ABG HCO3 25.7 POC ABG Total CO2 27 POC ABG O2 Sat 99 POC ABG Base Excess 0 FiO2 80 % Sodium (137-145) mmol/L Potassium (3.6-5.0) mmol/L Chloride (98-107) mmol/L Carbon Dioxide (22-30) mmol/L Anion Gap mmol/L BUN (7-17) mg/dL Creatinine (0.7-1.2) mg/dL Estimated GFR ml/min BUN/Creatinine Ratio % Glucose (65-100) mg/dL Lactic Acid 5.20 H* (0.7-2.0) mmol/L Calcium (8.4-10.2) mg/dL Magnesium (1.7-2.3) mg/dL Total Bilirubin (0.1-1.2) mg/dL AST (5-40) units/L ALT (7-56) units/L Alkaline Phosphatase (35-129) units/L Total Creatine Kinase (30-135) units/L CK-MB (CK-2) (0.0-4.0) ng/mL CK-MB (CK-2) Rel Index (0-4) Troponin T (0.00-0.029) ng/mL Total Protein (6.3-8.2) g/dL Albumin (3.9-5) g/dL Albumin/Globulin Ratio % CSF Appearance CSF Color CSF WBC (1-10) /mm3 CSF RBC (0-0) /mm3 CSF Seg Neutrophils (0-6) % CSF Lymphocytes % (40-80) % CSF Reactive Lymphs % CSF Monocytes % (15-45) % CSF Eosinophils % CSF Basophils CSF Pathologist Review CSF Glucose mg/dL CSF Total Protein mg/dL Salicylates (2.8-20.0) mg/dL Acetaminophen 12.6 (10.0-30.0) ug/mL Plasma/Serum Alcohol (0-0.07) % 01/06/18 01/06/18 01/06/18 Range/Units 11:34 Unknown Unknown WBC (4.5-11.0) K/mm3 RBC (3.65-5.03) M/mm3 Hgb (10.1-14.3) gm/dl Hct (30.3-42.9) % MCV (79-97) fl MCH (28-32) pg MCHC (30-34) % RDW (13.2-15.2) % Plt Count (140-440) K/mm3 Lymph % (Auto) (13.4-35.0) % [place] % (Auto) (0.0-7.3) % Eos % (Auto) (0.0-4.3) % Baso % (Auto) (0.0-1.8) % Lymph # (1.2-5.4) K/mm3 [place] # (0.0-0.8) K/mm3 Eos # (0.0-0.4) K/mm3 Baso # (0.0-0.1) K/mm3 Seg Neutrophils % (40.0-70.0) % Seg Neutrophils # (1.8-7.7) K/mm3 PT (12.2-14.9) Sec. INR (0.87-1.13) APTT (24.2-36.6) Sec. Thrombin Time (15.1-19.6) Sec. POC ABG pH (7.35-7.45) POC ABG pCO2 (35-45) POC ABG pO2 (80-105) POC ABG HCO3 POC ABG Total CO2 POC ABG O2 Sat POC ABG Base Excess FiO2 % Sodium (137-145) mmol/L Potassium (3.6-5.0) mmol/L Chloride (98-107) mmol/L Carbon Dioxide (22-30) mmol/L Anion Gap mmol/L BUN (7-17) mg/dL Creatinine (0.7-1.2) mg/dL Estimated GFR ml/min BUN/Creatinine Ratio % Glucose (65-100) mg/dL Lactic Acid 3.50 H* (0.7-2.0) mmol/L Calcium (8.4-10.2) mg/dL Magnesium (1.7-2.3) mg/dL Total Bilirubin (0.1-1.2) mg/dL AST (5-40) units/L ALT (7-56) units/L Alkaline Phosphatase (35-129) units/L Total Creatine Kinase (30-135) units/L CK-MB (CK-2) (0.0-4.0) ng/mL CK-MB (CK-2) Rel Index (0-4) Troponin T (0.00-0.029) ng/mL Total Protein (6.3-8.2) g/dL Albumin (3.9-5) g/dL Albumin/Globulin Ratio % CSF Appearance Clear CSF Color Colorless CSF WBC 3 (1-10) /mm3 CSF RBC 296 (0-0) /mm3 CSF Seg Neutrophils 23.6 (0-6) % CSF Lymphocytes % 27.0 (40-80) % CSF Reactive Lymphs 2.2 % CSF Monocytes % 47.2 (15-45) % CSF Eosinophils % Not Reportable CSF Basophils Not Reportable CSF Pathologist Review C CSF Glucose 77 mg/dL CSF Total Protein 58 mg/dL Salicylates (2.8-20.0) mg/dL Acetaminophen (10.0-30.0) ug/mL Plasma/Serum Alcohol (0-0.07) % - Radiology Data Radiology results: report reviewed, image reviewed X-ray of the chest is negative. Noncontrast CT scan of the brain is negative for bleed. Left-sided mastoiditis and external otitis are suggested. Angiogram is negative for significant disease - Medical Decision Making Differential diagnosis, including but not limited to: Stroke, toxic encephalopathy, metabolic encephalopathy, alcohol withdrawal seizure, status epilepticus, meningitis Assessment and plan: 57-year-old female with altered mental status, evidence of left sided mastoiditis, and possible status epilepticus. Has required multiple interventions, including consultation with stroke neurology, neuro critical care. As required intubation and spinal tap. Has received multiple antiepileptic drugs as well as appropriate targeted antibiotic therapy. Patient has an emergent condition that requires continuous EEG monitoring, as well as subspecialty services not available at this facility. Therefore, the patient will be transferred for definitive management. - Core Measures Measure Exclusions: not indicated - Thrombolytic Inclusion/Exclusion Thrombolytic Contraindications: Seizure at Onset Critical Care Time: Yes Critical care time in (mins) excluding proc time.: 60 Critical care attestation.: If time is entered above; I have spent that time in minutes in the direct care of this critically ill patient, excluding procedure time. ED Disposition Clinical Impression: Encephalopathy, Respiratory failure [id number] IP Is pt being admited?: No Does the pt Need Aspirin: No Condition: Critical Referrals: PRIMARY CARE, [Primary Care Provider] - 3-5 Days
[2018-01-06 08:23] LABS: INR 0.87 (0.87-1.13)
[2018-01-06 08:24] LABS: Thrombin Time 17.5 Sec. (15.1-19.6)
[2018-01-06 08:28] LABS: Creatine Kinase MB 3.6 ng/mL (0.0-4.0)
[2018-01-06 08:29] LABS: Alanine Aminotransferase 29 units/L (7-56); Albumin 3.9 g/dL (3.9-5); BUN/Creatinine Ratio 17; Blood Urea Nitrogen 29 mg/dL (7-17); Calcium 8.7 mg/dL (8.4-10.2); Hemolysis Index 19
--- NOTE | 2018-01-06 08:31 | XRay Report ---
AP CHEST: HISTORY: Endotracheal tube placement Compared to 08/20/16. Cardiac defibrillator pads are in place. An endotracheal tube has been inserted which terminates approximately 1 cm from the lynda. Consider retraction. There is good aeration of both lungs. No evidence for infiltrate, pleural effusion or pneumothorax. The cardiomediastinal silhouette is within normal limits. IMPRESSION: Unremarkable AP chest. Endotracheal tube as described.
[2018-01-06] MEDS ORDERED: NACL 0.9% 1000 ML IV ONE (08:54)
[2018-01-06] MEDS ORDERED: VANCOMYCIN 1,000 MG in NACL 0.9% 500 ML 500 ML IV ONE (08:54)
[2018-01-06] MEDS ORDERED: DECADRON IV ONE (08:57)
[2018-01-06] MEDS ORDERED: XYLOCAINE 2%/EPI 1:100,000 INFILTRATI ONE (08:58)
[2018-01-06] MEDS ORDERED: fentaNYL DRIP Premix 2,000 MCG/100 ML BAG IV SCH (09:00)
[2018-01-06] MEDS ORDERED: NACL 0.9% 500 ML IV SCH (09:00)
[2018-01-06] MEDS ORDERED: DIPRIVAN 10 MG/ML 1,000 MG/100 ML BOTTLE IV SCH (09:00)
--- NOTE | 2018-01-06 09:18 | Cat Scan Report ---
CT HEAD WITHOUT CONTRAST: HISTORY: Stroke symptoms. TECHNIQUE: Sequential 2.5mm CT images. COMPARISON: 08/25/15. FINDINGS: Mild cortical volume loss and mild chronic white matter changes are stable. Multiple subcentimeter chronic lacunar infarcts are again noted in the basal ganglia. No large chronic infarct. No evidence for hemorrhage, mass or extra-axial fluid collection. Ventricular size is within normal limits. The left mastoid air cells and left middle ear are opacified with fluid. The right mastoid air cells and visualized paranasal sinuses are well-aerated. No calvarial fracture is detected IMPRESSION: No acute intracranial process is appreciated. No evidence for hemorrhage. Volume loss, chronic white matter changes and scattered tiny chronic lacunar infarcts which are unchanged. Left mastoiditis/otitis? These findings were discussed with Dr. Chiang in the emergency department at 0835 hours.
--- NOTE | 2018-01-06 09:20 | Cat Scan Report ---
CTA NECK: CTA HEAD: HISTORY: Stroke symptoms. TECHNIQUE: Helical CT following IV contrast. Sagittal and coronal reformatted images. 3D volume rendering technique. Stenosis was calculated using NASCET criteria where the distal ICA being standard diameter. CTA neck: The visualized aortic arch, innominate artery and proximal bilateral subclavian arteries are widely patent with less than 20% stenosis. Within the right carotid system: Less than 20% stenosis. Within the left carotid system: Less than 20% stenosis. The cervical vertebral arteries are patent with less than 20% stenosis. 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 A large left posterior communicating artery is identified. There is less than 30% stenosis throughout the anterior and posterior circulations. No evidence for aneurysm or large vessel occlusion. IMPRESSION: Unremarkable CTA of the neck. Unremarkable CTA of the head, normal variant is noted.
--- NOTE | 2018-01-06 09:21 | Cat Scan Report ---
CTA NECK: CTA HEAD: HISTORY: Stroke symptoms. TECHNIQUE: Helical CT following IV contrast. Sagittal and coronal reformatted images. 3D volume rendering technique. Stenosis was calculated using NASCET criteria where the distal ICA being standard diameter. CTA neck: The visualized aortic arch, innominate artery and proximal bilateral subclavian arteries are widely patent with less than 20% stenosis. Within the right carotid system: Less than 20% stenosis. Within the left carotid system: Less than 20% stenosis. The cervical vertebral arteries are patent with less than 20% stenosis. 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 A large left posterior communicating artery is identified. There is less than 30% stenosis throughout the anterior and posterior circulations. No evidence for aneurysm or large vessel occlusion. IMPRESSION: Unremarkable CTA of the neck. Unremarkable CTA of the head, normal variant is noted.
[2018-01-06] MEDS ORDERED: CEREBYX 1,000 MG.PE in NACL 0.9% 100 ML IV ONE (09:30)
[2018-01-06] MEDS ORDERED: VITAMIN B-1 100 MG, FOLVITE 1 MG, INFUVITE 10 ML in NACL 0.9% 1000 ML 1,000 ML IV ONE (09:30)
[2018-01-06] MEDS ORDERED: VANCOMYCIN/NS 1 GM/250 ML 1 GM/250 ML BAG IV ONE (10:00)
[2018-01-06] MEDS ORDERED: VANCOMYCIN/NS 1 GM/250 ML 1 GM/250 ML BAG IV NR (10:00)
[2018-01-06] MEDS ORDERED: ROCEPHIN/NS 2 GM/100 ML 2 GM/100 ML BAG IV SCH (10:00)
[2018-01-06 11:11] LABS: Glucose,CSF 77 mg/dL
[2018-01-06 12:11] LABS: Appearance,CSF Clear
[2018-01-06 12:12] LABS: Red Blood Cell,CSF 296 /mm3 (0-0); White Blood Cell,CSF 3 /mm3 (1-10)
[2018-01-06 12:22] LABS: Total Cells Counted 89 /mm3
[2018-01-06] MEDS ORDERED: KCL 10MEQ/100ML 10 MEQ/100 ML BAG IV SCH (13:00)
[2018-01-06] MEDS ORDERED: DECADRON ONE (13:42)
[2018-01-06 13:47] LABS: Bacteria,Urine 1+ /HPF (Negative); Bilirubin,Urine NEG (Negative); Blood,Urine NEG (Negative); Color,Urine Yellow (Yellow); Urobilinogen,Urine < 2.0 mg/dL (<2.0)
[2018-01-06 13:53] LABS: Amphetamine Screen,Urine PRESUMPTIVE NEGATIVE; Cannabinoid Screen,Urine PRESUMPTIVE NEGATIVE; Cocaine Screen,Urine PRESUMPTIVE NEGATIVE; Methadone Screen,Urine PRESUMPTIVE NEGATIVE; Opiate Screen,Urine PRESUMPTIVE NEGATIVE
[2018-01-06 14:07] LABS: Benzodiazepines Screen,Urine PRESUMPTIVE POSITIVE
[2018-01-06 18:23] VITALS: BP 128/90
[2018-01-07] MEDS ORDERED: ROCEPHIN/NS 1 GM/50 ML 1 GM/50 ML BAG IV SCH (10:00)
== END 2018-01-06 15:15 | disposition short-term general hospital (02) ==
LOC: ED 08:04
DX: J96.90 Respiratory failure, unspecified, unspecified whether with hypoxia or hypercapnia (principal); G93.40 Encephalopathy, unspecified; I11.0 Hypertensive heart disease with heart failure; I50.9 Heart failure, unspecified; M19.90 Unspecified osteoarthritis, unspecified site; J44.9 Chronic obstructive pulmonary disease, unspecified; F17.200 Nicotine dependence, unspecified, uncomplicated
CPT/HCPCS: 31500; 36415; 36556; 62270; 70450; 70496; 70498; 71045; 80053; 80307; 81001; 82140; 82550; 82553; 82803; 82947; 83735; 84160; 84484; 85025; 85610; 85670; 85730; 86403; 87040; 87086; 87116; 89051; 96365; 96366; 96368; 96375; 99291; G0480; J0696; J1100; J2001; J2704; J3010; J3370; J3411; J7030; Q2009; Q9967; 80320; 94002

== ENCOUNTER 2021-07-31 13:50 | Inpatient (IN) | payer MEDICAID ==
[2021-07-31] MEDS ORDERED: ASPIRIN 81 MG TAB CHEW PO ONE (14:35)
--- NOTE | 2021-07-31 14:35 | Emergency Department Report ---
ED Chest Pain HPI - General Chief Complaint: Chest Pain Stated Complaint: CHEST PAIN PUI?: No Time Seen by Provider: 07/31/21 14:17 Source: EMS Mode of arrival: Ambulatory Limitations: No Limitations - History of Present Illness Initial Comments: Chief complaint: Chest pain shortness of breath HPI: This is a 60-year-old female with history of congestive heart failure, chronic kidney disease, hypertension, hypothyroidism, COPD who presents with chest pain and shortness of breath. Chest pain began this morning. It occurred while laying in bed. Nondescript discomfort central chest. 9/10 in severity She is unaware of cardiac disease in her family. According to EMR, 04 29 2016: Thallium stress test normal myocardial perfusion study Complaint: chest pain -: Gradual, This morning Onset: during rest Pain Location: substernal Pain Radiation: none Severity: severe Severity scale (0 -10): 9 Quality: aching, dull Consistency: constant Improves With: nothing Worsens With: nothing re: dyspnea Treatments Prior to Arrival: none - Related Data Previous Rx's Medication Instructions Recorded Last Taken Type Metoprolol [Lopressor TAB] 12.5 mg PO BID #60 tablet 04/30/16 Unknown Rx NIFEdipine XL [Procardia Xl] 60 mg PO QDAY #30 tablet 04/30/16 Unknown Rx Valsartan [Diovan] 160 mg PO BID #60 tablet 04/30/16 Unknown Rx HYDROcodone/APAP 5-325 [[place] 1 each PO Q4HR PRN #15 tablet 08/20/16 Unknown Rx 5/325] Folic Acid [Folvite] 1 mg PO QDAY #30 tablet 08/24/16 Unknown Rx SILVER sulfADIAZINE 50 GRAM 1 applic TP BID #1 tube 08/24/16 Unknown Rx [Thermazene 50 Gram] Thiamine [Vitamin B-1] 100 mg PO QDAY #30 tablet 08/24/16 Unknown Rx oxyCODONE /ACETAMINOPHEN [Percocet 1 tab PO Q6H PRN #10 tablet 08/24/16 Unknown Rx 5/325 mg] Allergies Allergy/AdvReac Type Severity Reaction Status Date / Time No Known Allergies Allergy Verified 11/02/15 13:46 Heart Score - HEART Score History: Moderately suspicious EKG: Non-specific Age: 45-65 Risk factors: 1-2 risk factors Troponin: < normal limit HEART Score: 4 - EKG Read Time Time EKG Completed: 13:56 EKG Read Time: 14:04 - Critical Actions Critical Actions: 4-6 pts:12-16.6% risk of adverse cardiac event. Should be admitted ED Review of Systems ROS: Stated complaint: CHEST PAIN Other details as noted in HPI Comment: All other systems reviewed and negative Constitutional: denies: chills, fever, malaise Respiratory: shortness of breath. denies: cough Cardiovascular: chest pain Gastrointestinal: denies: abdominal pain, nausea, vomiting ED Past Medical Hx - Past Medical History Previous Medical History?: Yes Hx Hypertension: Yes Hx CVA: No Hx Congestive Heart Failure: Yes Hx Diabetes: No Hx Arthritis: Yes Hx Asthma: No Hx COPD: Yes - Surgical History Past Surgical History?: No - Family History Family history: hypertension - Social History Smoking Status: Current Every Day Smoker Substance Use Type: None - Medications Home Medications: Home Medications Medication Instructions Recorded Confirmed Last Taken Type Metoprolol [Lopressor TAB] 12.5 mg PO BID #60 tablet 04/30/16 Unknown Rx NIFEdipine XL [Procardia Xl] 60 mg PO QDAY #30 tablet 04/30/16 Unknown Rx Valsartan [Diovan] 160 mg PO BID #60 tablet 04/30/16 Unknown Rx HYDROcodone/APAP 5-325 [[place] 1 each PO Q4HR PRN #15 tablet 08/20/16 Unknown Rx 5/325] Folic Acid [Folvite] 1 mg PO QDAY #30 tablet 08/24/16 Unknown Rx SILVER sulfADIAZINE 50 GRAM 1 applic TP BID #1 tube 08/24/16 Unknown Rx [Thermazene 50 Gram] Thiamine [Vitamin B-1] 100 mg PO QDAY #30 tablet 08/24/16 Unknown Rx oxyCODONE /ACETAMINOPHEN [Percocet 1 tab PO Q6H PRN #10 tablet 08/24/16 Unknown Rx 5/325 mg] ED Physical Exam - General Limitations: No Limitations General appearance: alert, in no apparent distress - Head Head exam: Present: atraumatic, normocephalic - Eye Eye exam: Present: normal appearance - ENT ENT exam: Present: mucous membranes moist - Neck Neck exam: Present: normal inspection, full ROM - Respiratory Respiratory exam: Present: normal lung sounds bilaterally. Absent: respiratory distress, wheezes, rales, rhonchi - Cardiovascular Cardiovascular Exam: Present: regular rate, normal rhythm, normal heart sounds. Absent: systolic murmur, diastolic murmur, rubs, gallop - GI/Abdominal GI/Abdominal exam: Present: soft, normal bowel sounds. Absent: distended, tenderness, guarding, rebound - Extremities Exam Extremities exam: Present: normal inspection - Neurological Exam Neurological exam: Present: alert, oriented X3 - Psychiatric Psychiatric exam: Present: normal affect, normal mood - Skin Skin exam: Present: warm, dry, intact, normal color. Absent: rash ED Course Vital Signs 07/31/21 07/31/21 14:02 15:36 Temperature 98.4 F Pulse Rate 82 Respiratory 16 16 Rate Blood Pressure 180/80 [Right] O2 Sat by Pulse 98 Oximetry ED Medical Decision Making - Lab Data Result diagrams: 07/31/21 14:54 07/31/21 14:54 - EKG Data -: EKG Interpreted by Me - EKG Data Interpretation: nonspecific ST-T wave [place] 07/31/21 14:34 EKG obtained 1356 EKG interpreted by me Rate 63 bpm normal sinus rhythm prolonged MA interval normal QTC positive LVH no ST elevation nonspecific T wave pattern - Radiology Data Radiology results: report reviewed - Medical Decision Making Acute coronary syndrome heart score 4. Patient given aspirin morphine emergency department. Differential diagnosis includes GERD, anxiety reaction. No indication of pulmonary edema on chest x-ray for troponin negative. Admitted to the hospital service Critical care attestation.: If time is entered above; I have spent that time in minutes in the direct care of this critically ill patient, excluding procedure time. ED Disposition Clinical Impression: Acute coronary syndrome Disposition: ADMITTED INPATIENT Is pt being admited?: No Does the pt Need Aspirin: No Condition: Stable
[2021-07-31] MEDS ORDERED: MORPHINE 4 MG/1 ML INJ IV ONE (14:36)
[2021-07-31] MEDS ORDERED: ONDANSETRON 4 MG/2 ML INJ IV ONE (14:36)
[2021-07-31 15:15] LABS: Basophils % (Auto) 0.6 % (0.0-1.8); Eosinophils # (Auto) 0.1 K/mm3 (0.0-0.4); Eosinophils % (Auto) 2.9 % (0.0-4.3); Hematocrit 28.2 % (30.3-42.9); Hemoglobin 9.4 gm/dl (10.1-14.3); Lymphocytes # (Auto) 0.9 K/mm3 (1.2-5.4); Lymphocytes % (Auto) 21.9 % (13.4-35.0); Mean Corpuscular HGB Conc 33 % (30-34); Mean Corpuscular Volume 85 fl (79-97); Monocytes # (Auto) 0.6 K/mm3 (0.0-0.8); Monocytes % (Auto) 13.6 % (0.0-7.3); Platelet Count 268 K/mm3 (140-440); Red Blood Count 3.31 M/mm3 (3.65-5.03); Red Cell Distribution Width 15.2 % (13.2-15.2)
--- NOTE | 2021-07-31 15:15 | XRay Report ---
XR chest 1V ap INDICATION / CLINICAL INFORMATION: Chest Pain COMPARISON: 01/06/2018 FINDINGS: SUPPORT DEVICES: None. HEART / MEDIASTINUM: No significant abnormality. LUNGS / PLEURA: Lungs are clear. Costophrenic sulci are sharp. No pneumothorax. ADDITIONAL FINDINGS: No significant additional findings. IMPRESSION: 1. No acute findings. Signer Name: Elijah Dunn MD Signed: 07/31/2021 3:10 PM Workstation Name: [id number]
[2021-07-31 15:36] LABS: Alanine Aminotransferase 6 units/L (7-56); Albumin 3.9 g/dL (3.9-5); BUN/Creatinine Ratio 15; Blood Urea Nitrogen 34 mg/dL (7-17); Calcium 9.2 mg/dL (8.4-10.2); Hemolysis Index 3
[2021-07-31] MEDS ORDERED: PANTOPRAZOLE 40 MG INJ IV ONE (16:33)
[2021-07-31] MEDS ORDERED: oxyCODONE /ACETAMINOPHEN 5-325MG TAB PO ONE (16:33)
--- NOTE | 2021-07-31 19:04 | History and Physical Report ---
History of Present Illness Date of examination: 07/31/21 Date of admission: 07/31/2021 Chief complaint: Chest pain since a.m. and some shortness of breath History of present illness: 60-year-old female with history of congestive heart failure, chronic kidney disease, hypertension, hypothyroidism, COPD presents with chest pain and shortness of breath. Chest pain began this morning. Chest pain is retrosternal. 9/10 on a scale of 1-10. Chest pain is intermittent in nature. No radiation. No diaphoresis. Some shortness of breath present. No fever or chills. No orthopnea. - Past Medical History --Previous Medical History?: Yes --Hypertension: Yes --Congestive Heart Failure: Yes --Arthritis: Yes --COPD: Yes - Surgical History -- No - Family History --Family history: hypertension - Social History --Smoking Status: Current Every Day Smoker --Substance Use Type: None - Medications --Home Medications: Home Medications Medication Instructions Recorded Confirmed Last Taken Type Metoprolol [Lopressor TAB] 12.5 mg PO BID #60 tablet 04/30/16 Unknown Rx NIFEdipine XL [Procardia Xl] 60 mg PO QDAY #30 tablet 04/30/16 Unknown Rx Valsartan [Diovan] 160 mg PO BID #60 tablet 04/30/16 Unknown Rx HYDROcodone/APAP 5-325 [[place] 1 each PO Q4HR PRN #15 tablet 08/20/16 Unknown Rx 5/325] Folic Acid [Folvite] 1 mg PO QDAY #30 tablet 08/24/16 Unknown Rx SILVER sulfADIAZINE 50 GRAM 1 applic TP BID #1 tube 08/24/16 Unknown Rx [Thermazene 50 Gram] Thiamine [Vitamin B-1] 100 mg PO QDAY #30 tablet 08/24/16 Unknown Rx oxyCODONE /ACETAMINOPHEN [Percocet 1 tab PO Q6H PRN #10 tablet 08/24/16 Unknown Rx 5/325 mg] Review of Systems ROS: Stated complaint: CHEST PAIN Other details as noted in HPI Comment: All other systems reviewed and negative Constitutional: denies: chills, fever, malaise Respiratory: shortness of breath. denies: cough Cardiovascular: chest pain Gastrointestinal: denies: abdominal pain, nausea, vomiting Medications and Allergies Allergies Allergy/AdvReac Type Severity Reaction Status Date / Time No Known Allergies Allergy Verified 11/02/15 13:46 Home Medications Medication Instructions Recorded Confirmed Last Taken Type Metoprolol [Lopressor TAB] 12.5 mg PO BID #60 tablet 04/30/16 Unknown Rx NIFEdipine XL [Procardia Xl] 60 mg PO QDAY #30 tablet 04/30/16 Unknown Rx Valsartan [Diovan] 160 mg PO BID #60 tablet 04/30/16 Unknown Rx HYDROcodone/APAP 5-325 [[place] 1 each PO Q4HR PRN #15 tablet 08/20/16 Unknown Rx 5/325] Folic Acid [Folvite] 1 mg PO QDAY #30 tablet 08/24/16 Unknown Rx SILVER sulfADIAZINE 50 GRAM 1 applic TP BID #1 tube 08/24/16 Unknown Rx [Thermazene 50 Gram] Thiamine [Vitamin B-1] 100 mg PO QDAY #30 tablet 08/24/16 Unknown Rx oxyCODONE /ACETAMINOPHEN [Percocet 1 tab PO Q6H PRN #10 tablet 08/24/16 Unknown Rx 5/325 mg] Exam - Constitutional Vitals: Temp Pulse Resp BP Pulse Ox 98.4 F 60 14 172/98 97 07/31/21 14:02 07/31/21 18:08 07/31/21 18:08 07/31/21 18:08 07/31/21 18:08 General appearance: Present: no acute distress, well-nourished - EENT Eyes: Present: PERRL ENT: hearing intact, clear oral mucosa - Neck Neck: Present: supple, normal ROM - Respiratory Respiratory effort: normal Respiratory: bilateral: CTA - Cardiovascular Heart rate: 78 Rhythm: regular Heart Sounds: Present: S1 & S2. Absent: rub, click - Extremities Extremities: pulses symmetrical, No edema Peripheral Pulses: within normal limits - Abdominal General gastrointestinal: Present: soft, non-tender, non-distended, normal bowel sounds Female genitourinary: Present: normal - Integumentary Integumentary: Present: clear, warm, dry - Musculoskeletal Musculoskeletal: gait normal, strength equal bilaterally - Psychiatric Psychiatric: appropriate mood/affect, intact judgment & insight - Neurologic Neurologic: CNII-XII intact, moves all extremities HEART Score - HEART Score EKG: Non-specific Age: 45-65 Risk factors: 1-2 risk factors Troponin: Troponin T < 0.010 ng/mL (0.00-0.029) 07/31/21 14:54 Troponin: < normal limit - Critical Actions Critical Actions: 4-6 pts:12-16.6% risk of adverse cardiac event. Should be admitted Results - Labs CBC & Chem 7: 08/01/21 05:04 08/01/21 05:04 Labs: Laboratory Last Values WBC 4.1 K/mm3 (4.5-11.0) L 07/31/21 14:54 RBC 3.31 M/mm3 (3.65-5.03) L 07/31/21 14:54 Hgb 9.4 gm/dl (10.1-14.3) L 07/31/21 14:54 Hct 28.2 % (30.3-42.9) L 07/31/21 14:54 MCV 85 fl (79-97) 07/31/21 14:54 MCH 29 pg (28-32) 07/31/21 14:54 MCHC 33 % (30-34) 07/31/21 14:54 RDW 15.2 % (13.2-15.2) 07/31/21 14:54 Plt Count 268 K/mm3 (140-440) 07/31/21 14:54 Lymph % (Auto) 21.9 % (13.4-35.0) 07/31/21 14:54 [place] % (Auto) 13.6 % (0.0-7.3) H 07/31/21 14:54 Eos % (Auto) 2.9 % (0.0-4.3) 07/31/21 14:54 Baso % (Auto) 0.6 % (0.0-1.8) 07/31/21 14:54 Lymph # (Auto) 0.9 K/mm3 (1.2-5.4) L 07/31/21 14:54 [place] # (Auto) 0.6 K/mm3 (0.0-0.8) 07/31/21 14:54 Eos # (Auto) 0.1 K/mm3 (0.0-0.4) 07/31/21 14:54 Baso # (Auto) 0.0 K/mm3 (0.0-0.1) 07/31/21 14:54 Seg Neutrophils % 61.0 % (40.0-70.0) 07/31/21 14:54 Seg Neutrophils # 2.5 K/mm3 (1.8-7.7) 07/31/21 14:54 Sodium 143 mmol/L (137-145) 07/31/21 14:54 Potassium 4.1 mmol/L (3.6-5.0) 07/31/21 14:54 Chloride 106.4 mmol/L (98-107) 07/31/21 14:54 Carbon Dioxide 25 mmol/L (22-30) 07/31/21 14:54 Anion Gap 16 mmol/L 07/31/21 14:54 BUN 34 mg/dL (7-17) H 07/31/21 14:54 Creatinine 2.3 mg/dL (0.6-1.2) H 07/31/21 14:54 Estimated GFR 26 ml/min 07/31/21 14:54 BUN/Creatinine Ratio 15 % 07/31/21 14:54 Glucose 105 mg/dL (65-100) H 07/31/21 14:54 Calcium 9.2 mg/dL (8.4-10.2) 07/31/21 14:54 Total Bilirubin 0.20 mg/dL (0.1-1.2) 07/31/21 14:54 AST 8 units/L (5-40) 07/31/21 14:54 ALT 6 units/L (7-56) L 07/31/21 14:54 Alkaline Phosphatase 75 units/L (35-129) 07/31/21 14:54 Troponin T < 0.010 ng/mL (0.00-0.029) 07/31/21 14:54 NT-Pro-B Natriuret Pep 1919 pg/mL (0-900) H 07/31/21 14:54 Total Protein 6.9 g/dL (6.3-8.2) 07/31/21 14:54 Albumin 3.9 g/dL (3.9-5) 07/31/21 14:54 Albumin/Globulin Ratio 1.3 % 07/31/21 14:54 Short CBC 07/31/21 08/01/21 Range/Units 14:54 05:04 WBC 4.1 L 3.6 L (4.5-11.0) K/mm3 Hgb 9.4 L 9.5 L (10.1-14.3) gm/dl Hct 28.2 L 28.7 L (30.3-42.9) % Plt Count 268 280 (140-440) K/mm3 BMP 07/31/21 08/01/21 14:54 05:04 Sodium 143 143 Potassium 4.1 3.9 Chloride 106.4 105.8 Carbon Dioxide 25 25 BUN 34 H 36 H Creatinine 2.3 H 2.3 H Glucose 105 H 104 H Calcium 9.2 8.9 Cardiac Enzymes 07/31/21 07/31/21 08/01/21 Range/Units 14:54 19:56 05:04 Troponin T < 0.010 < 0.010 < 0.010 (0.00-0.029) ng/mL Liver Function 07/31/21 08/01/21 Range/Units 14:54 05:04 Total Bilirubin 0.20 0.20 (0.1-1.2) mg/dL AST 8 9 (5-40) units/L ALT 6 L 6 L (7-56) units/L Alkaline Phosphatase 75 68 (35-129) units/L Albumin 3.9 3.9 (3.9-5) g/dL - Imaging and Cardiology EKG: report reviewed (Sinus rhythm no acute ST-T wave changes) Chest x-ray: report reviewed (No acute findings) Assessment and Plan Advance Directives: Yes (Full code) VTE prophylaxis?: Chemical (Full code) Plan of care discussed with patient/family: Yes - Patient Problems (1) Acute coronary syndrome Current Visit: Yes Status: Acute Plan to address problem: Serial troponins Lexiscan in the morning (2) MISTI (acute kidney injury) Current Visit: Yes Status: Acute Plan to address problem: More in favor of chronic kidney disease Slow progression from 2015 to now. Creatinine was 1.1 on August 24, 2016 Patient was admitted for hypokalemia and hypomagnesemia at that point of time. Creatinine worsened to 29 and 1.7 on January 06, 2018 Today the creatinine is 2.3 Slow upward progression of creatinine in favor of chronic kidney disease MISTI on chronic kidney disease IV fluids for now Possible vasomotor nephropathy (3) Uncontrolled hypertension Current Visit: No Status: Acute Plan to address problem: Blood pressure medications adjusted (4) Chronic diastolic CHF (congestive heart failure) Current Visit: No Status: Chronic Plan to address problem: Echocardiogram in the morning for ejection fraction Cardiology consult if necessary (5) DVT prophylaxis Current Visit: No Status: Acute Plan to address problem: Ongoing anticoagulation GI prophylaxis (6) Advance care planning Current Visit: Yes Status: Acute Plan to address problem: Disease education conducted, care plan discussed, diagnosis discussed, prognosis discussed. Patient is full code. Patient acknowledges understanding and agreement with care plan. +30 minutes.
[2021-07-31] MEDS ORDERED: ACETAMINOPHEN 325 MG TAB PO PRN ×2 (19:06→19:09)
[2021-07-31] MEDS ORDERED: ONDANSETRON 4 MG/2 ML INJ IV PRN ×2 (19:06→19:09)
[2021-07-31] MEDS ORDERED: METOCLOPRAMIDE 10 MG/2 ML INJ IV PRN (19:09)
[2021-07-31] MEDS ORDERED: oxyCODONE /ACETAMINOPHEN 5-325MG TAB PO PRN (19:09)
[2021-07-31] MEDS: FOLIC ACID 1 MG TAB PO SCH (20:43)
[2021-07-31] MEDS: NIFEdipine XL 60 MG TAB PO SCH (21:15)
[2021-07-31] MEDS: THIAMINE 100 MG TAB PO SCH (21:15)
[2021-07-31] MEDS ORDERED: VALSARTAN 160MG TAB PO SCH (22:00)
[2021-07-31] MEDS: HEPARIN 5,000 UNIT/1 ML VIAL SUB-Q SCH (22:41)
[2021-07-31] MEDS: METOPROLOL TARTRATE 25 MG TAB PO SCH (22:43)
[2021-08-01 05:31] LABS: Eosinophils # (Auto) 0.1 K/mm3 (0.0-0.4); Eosinophils % (Auto) 3.5 % (0.0-4.3); Hematocrit 28.7 % (30.3-42.9); Hemoglobin 9.5 gm/dl (10.1-14.3); Lymphocytes # (Auto) 1.3 K/mm3 (1.2-5.4); Lymphocytes % (Auto) 35.2 % (13.4-35.0); Mean Corpuscular HGB Conc 33 % (30-34); Mean Corpuscular Volume 86 fl (79-97); Monocytes # (Auto) 0.6 K/mm3 (0.0-0.8); Monocytes % (Auto) 15.7 % (0.0-7.3); Platelet Count 280 K/mm3 (140-440); Red Blood Count 3.33 M/mm3 (3.65-5.03); Red Cell Distribution Width 15.1 % (13.2-15.2)
[2021-08-01 05:53] LABS: Albumin 3.9 g/dL (3.9-5); Calcium 8.9 mg/dL (8.4-10.2)
[2021-08-01] MEDS ORDERED: REGADENOSON 0.4 MG/5 ML INJ IV ONE (09:10)
--- NOTE | 2021-08-01 09:18 | Consultation ---
History of Present Illness - Reason for Consult Consult date: 08/01/21 acute renal failure - History of Present Illness The oatient is a 60 year old female was admitted for worsening chest pain and shortness, CXR was negative for acute findings. planned to have stress test and serial troponins. She was noted to have abnormal creatinine and renal consult was requested Past History Past Medical History: hyperthyroidism Medications and Allergies Allergies Allergy/AdvReac Type Severity Reaction Status Date / Time No Known Allergies Allergy Verified 11/02/15 13:46 Home Medications Medication Instructions Recorded Confirmed Last Taken Type Metoprolol [Lopressor TAB] 12.5 mg PO BID #60 tablet 04/30/16 Unknown Rx NIFEdipine XL [Procardia Xl] 60 mg PO QDAY #30 tablet 04/30/16 Unknown Rx Valsartan [Diovan] 160 mg PO BID #60 tablet 04/30/16 Unknown Rx HYDROcodone/APAP 5-325 [[place] 1 each PO Q4HR PRN #15 tablet 08/20/16 Unknown Rx 5/325] Folic Acid [Folvite] 1 mg PO QDAY #30 tablet 08/24/16 Unknown Rx SILVER sulfADIAZINE 50 GRAM 1 applic TP BID #1 tube 08/24/16 Unknown Rx [Thermazene 50 Gram] Thiamine [Vitamin B-1] 100 mg PO QDAY #30 tablet 08/24/16 Unknown Rx oxyCODONE /ACETAMINOPHEN [Percocet 1 tab PO Q6H PRN #10 tablet 08/24/16 Unknown Rx 5/325 mg] Active Meds: Active Medications Acetaminophen (Acetaminophen 325 Mg Tab) 650 mg PO Q4H PRN PRN Reason: Pain MILD(1-3)/Fever >100.5/SNOW Folic Acid (Folic Acid 1 Mg Tab) 1 mg PO QDAY [facility] Last Admin: 07/31/21 20:43 Dose: 1 mg Heparin Sodium (Porcine) (Heparin 5,000 Unit/1 Ml Vial) 5,000 unit SUB-Q Q12HR [facility] Last Admin: 07/31/21 22:41 Dose: 5,000 unit Metoclopramide HCl (Metoclopramide 10 Mg/2 Ml Inj) 10 mg IV Q6H PRN PRN Reason: Nausea And Vomiting Metoprolol Tartrate (Metoprolol Tartrate 25 Mg Tab) 12.5 mg PO BID [facility] Last Admin: 07/31/21 22:43 Dose: 12.5 mg Nifedipine (Nifedipine Xl 60 Mg Tab) 60 mg PO QDAY [facility] Last Admin: 07/31/21 21:15 Dose: 60 mg Ondansetron HCl (Ondansetron 4 Mg/2 Ml Inj) 4 mg IV Q8H PRN PRN Reason: Nausea And Vomiting Oxycodone/Acetaminophen (Oxycodone /Acetaminophen 5-325mg Tab) 1 tab PO Q6H PRN PRN Reason: Pain, Moderate (4-6) Regadenoson (Regadenoson 0.4 Mg/5 Ml Inj) 0.4 mg IV ONCE ONE Stop: 08/01/21 09:11 Silver Sulfadiazine (Silver Sulfadiazine Cream 50 Gm) 1 applic TP BID [facility] Sodium Chloride (Sodium Chloride 0.9% 10 Ml Flush Syringe) 10 ml IV BID [facility] Last Admin: 07/31/21 22:44 Dose: 10 ml Sodium Chloride (Sodium Chloride 0.9% 10 Ml Flush Syringe) 10 ml IV PRN PRN PRN Reason: LINE FLUSH Thiamine HCl (Thiamine 100 Mg Tab) 100 mg PO QDAY [facility] Last Admin: 07/31/21 21:15 Dose: 100 mg Review of Systems All systems: negative (SOB) Exam - Vital Signs Vital signs: Vital Signs Temp Pulse Resp BP Pulse Ox 98.4 F 82 16 180/80 98 07/31/21 14:02 07/31/21 14:02 07/31/21 14:02 07/31/21 14:02 07/31/21 14:02 Results - Lab Results 08/01/21 05:04 08/01/21 05:04 Most recent lab results Calcium 8.9 mg/dL (8.4-10.2) 08/01/21 05:04 Assessment and Plan (1) Acute coronary syndrome (2) MISTI (acute kidney injury) (3) Uncontrolled hypertension (4) Chronic diastolic CHF (congestive heart failure) Cr in 2018 was 1.8, elevated creatinine likely progressing of CKD 2/2 HTN will hold Valsartan during this admission will check renal US will check urine lytes and protein renally dose meds strict I&O daily weight
--- NOTE | 2021-08-01 09:53 | Progress Note ---
Assessment and Plan Assessment and plan: EKG: report reviewed (Sinus rhythm no acute ST-T wave changes) Chest x-ray: report reviewed (No acute findings) --Acute coronary syndrome/atypical chest pain Current Visit: Yes Status: Acute Serial troponins negative Lexiscan stress test today --MISTI (acute kidney injury) Current Visit: Yes Status: Acute Due to vasomotor nephropathy Acute versus acute on chronic kidney disease Gentle hydration,Monitor renal function Avoid nephrotoxins, renal dosing of medications Nephrology following --Uncontrolled hypertension Current Visit: No Status: Acute Blood pressure medications adjusted --Chronic diastolic CHF (congestive heart failure) Current Visit: No Status: Chronic Echocardiogram in the morning for ejection fraction Cardiology consult if necessary --DVT prophylaxis Current Visit: No Status: Acute Ongoing anticoagulation GI prophylaxis --Advance care planning Current Visit: Yes Status: Acute Disease education conducted, care plan discussed, diagnosis discussed, prognosis discussed. Patient is full code. Patient acknowledges understanding and agreement with care plan. +30 minutes. Follow-up stress test, echocardiogram Consult cardiology if needed We will closely monitor patient and adjust management as needed History Interval history: I have seen and examined the patient at the bedside Patient's chart and medications reviewed Patient was admitted with chest pain Underwent stress test today Pending report Hospitalist Physical - Constitutional Vitals: Temp Pulse Resp BP Pulse Ox 97.5 F L 53 L 18 119/65 100 08/01/21 07:47 08/01/21 07:47 08/01/21 07:47 08/01/21 07:47 08/01/21 07:47 General appearance: Present: no acute distress, well-nourished - EENT Eyes: Present: PERRL, EOM intact - Neck Neck: Present: supple, normal ROM - Respiratory Respiratory effort: normal Respiratory: bilateral: diminished, negative: rales, rhonchi, wheezing - Cardiovascular Rhythm: regular Heart Sounds: Present: S1 & S2 - Extremities Extremities: no ischemia, No edema - Abdominal General gastrointestinal: soft, non-tender, non-distended, normal bowel sounds - Integumentary Integumentary: Present: clear, warm - Psychiatric Psychiatric: appropriate mood/affect, cooperative - Neurologic Neurologic: CNII-XII intact, moves all extremities HEART Score - HEART Score EKG: Non-specific Age: 45-65 Risk factors: 1-2 risk factors Troponin: Troponin T < 0.010 ng/mL (0.00-0.029) 08/01/21 05:04 Troponin: < normal limit - Critical Actions Critical Actions: 4-6 pts:12-16.6% risk of adverse cardiac event. Should be admitted Results - Labs CBC & Chem 7: 08/01/21 05:04 08/01/21 05:04 Labs: Laboratory Last Values WBC 3.6 K/mm3 (4.5-11.0) L 08/01/21 05:04 RBC 3.33 M/mm3 (3.65-5.03) L 08/01/21 05:04 Hgb 9.5 gm/dl (10.1-14.3) L 08/01/21 05:04 Hct 28.7 % (30.3-42.9) L 08/01/21 05:04 MCV 86 fl (79-97) 08/01/21 05:04 MCH 29 pg (28-32) 08/01/21 05:04 MCHC 33 % (30-34) 08/01/21 05:04 RDW 15.1 % (13.2-15.2) 08/01/21 05:04 Plt Count 280 K/mm3 (140-440) 08/01/21 05:04 Lymph % (Auto) 35.2 % (13.4-35.0) H 08/01/21 05:04 Major % (Auto) 15.7 % (0.0-7.3) H 08/01/21 05:04 Eos % (Auto) 3.5 % (0.0-4.3) 08/01/21 05:04 Baso % (Auto) 1.0 % (0.0-1.8) 08/01/21 05:04 Lymph # (Auto) 1.3 K/mm3 (1.2-5.4) 08/01/21 05:04 Major # (Auto) 0.6 K/mm3 (0.0-0.8) 08/01/21 05:04 Eos # (Auto) 0.1 K/mm3 (0.0-0.4) 08/01/21 05:04 Baso # (Auto) 0.0 K/mm3 (0.0-0.1) 08/01/21 05:04 Seg Neutrophils % 44.6 % (40.0-70.0) 08/01/21 05:04 Seg Neutrophils # 1.6 K/mm3 (1.8-7.7) L 08/01/21 05:04 Sodium 143 mmol/L (137-145) 08/01/21 05:04 Potassium 3.9 mmol/L (3.6-5.0) 08/01/21 05:04 Chloride 105.8 mmol/L (98-107) 08/01/21 05:04 Carbon Dioxide 25 mmol/L (22-30) 08/01/21 05:04 Anion Gap 16 mmol/L 08/01/21 05:04 BUN 36 mg/dL (7-17) H 08/01/21 05:04 Creatinine 2.3 mg/dL (0.6-1.2) H 08/01/21 05:04 Estimated GFR 26 ml/min 08/01/21 05:04 BUN/Creatinine Ratio 16 % 08/01/21 05:04 Glucose 104 mg/dL (65-100) H 08/01/21 05:04 Calcium 8.9 mg/dL (8.4-10.2) 08/01/21 05:04 Total Bilirubin 0.20 mg/dL (0.1-1.2) 08/01/21 05:04 AST 9 units/L (5-40) 08/01/21 05:04 ALT 6 units/L (7-56) L 08/01/21 05:04 Alkaline Phosphatase 68 units/L (35-129) 08/01/21 05:04 Troponin T < 0.010 ng/mL (0.00-0.029) 08/01/21 05:04 NT-Pro-B Natriuret Pep 1919 pg/mL (0-900) H 07/31/21 14:54 Total Protein 6.9 g/dL (6.3-8.2) 08/01/21 05:04 Albumin 3.9 g/dL (3.9-5) 08/01/21 05:04 Albumin/Globulin Ratio 1.3 % 08/01/21 05:04 Turner/IV: Voiding Method Toilet Active Medications - Current Medications Current Medications: Generic Name Dose Route Start Last Admin Trade Name Freq PRN Reason Stop Dose Admin Acetaminophen 650 mg 07/31/21 19:09 Acetaminophen 325 Mg Tab PO Q4H PRN Pain MILD(1-3)/Fever >100.5/SNOW Folic Acid 1 mg 07/31/21 20:00 07/31/21 20:43 Folic Acid 1 Mg Tab PO 1 mg QDAY AMADOR Administration Heparin Sodium (Porcine) 5,000 unit 07/31/21 22:00 07/31/21 22:41 Heparin 5,000 Unit/1 Ml Vial SUB-Q 5,000 unit Q12HR [facility]AD[facility] Administration Metoclopramide HCl 10 mg 07/31/21 19:09 Metoclopramide 10 Mg/2 Ml Inj IV Q6H PRN Nausea And Vomiting Metoprolol Tartrate 12.5 mg 07/31/21 22:00 07/31/21 22:43 Metoprolol Tartrate 25 Mg Tab PO 12.5 mg BID AMADOR Administration Nifedipine 60 mg 07/31/21 20:00 07/31/21 21:15 Nifedipine Xl 60 Mg Tab PO 60 mg QDAY AMAD[facility] Administration Ondansetron HCl 4 mg 07/31/21 19:09 Ondansetron 4 Mg/2 Ml Inj IV Q8H PRN Nausea And Vomiting Oxycodone/Acetaminophen 1 tab 07/31/21 19:09 Oxycodone /Acetaminophen 5-325mg Tab PO Q6H PRN Pain, Moderate (4-6) Silver Sulfadiazine 1 applic 07/31/21 22:00 Silver Sulfadiazine Cream 50 Gm TP BID AMADOR Sodium Chloride 10 ml 07/31/21 22:00 07/31/21 22:44 Sodium Chloride 0.9% 10 Ml Flush Syringe IV 10 ml BID AMADOR Administration Sodium Chloride 10 ml 07/31/21 19:06 Sodium Chloride 0.9% 10 Ml Flush Syringe IV PRN PRN LINE FLUSH Thiamine HCl 100 mg 07/31/21 20:00 07/31/21 21:15 Thiamine 100 Mg Tab PO 100 mg QDAY AMADOR Administration
--- NOTE | 2021-08-01 10:17 | Electrocardiograph Report ---
[facility] Test Date: 2021-07-31 Test Time: 13:56:04 Pat Name: JORGE FOREMAN Department: Room: A481 1 Gender: F Diplomatic Officer: ADELINE : 1960 Requested By: JOLANTA AL Order Number: [id number] Reading MD: Khoi Arevalo Measurements Intervals [place] Rate: 63 P: 262 PA: 320 QRS: -20 QRSD: 114 T: 151 QT: 459 QTc: 471 Interpretive Statements Sinus or ectopic atrial rhythm Prolonged PA interval LVH with secondary repolarization abnormality No previous ECG available for comparison Electronically Signed On 08-01-2021 10:17:22 EST by Khoi Arevalo
--- NOTE | 2021-08-01 12:21 | Nuclear Medicine Report ---
APPROVED REPORT Exam: Nuclear Stress Test Indication: [facility] pain [facility] Ht: 5 ft 1 in Wt: 120 lbs BSA: 1.52 m2 HR: 56 bpmBP: 141/79 mmHgBMI: 22.67 Rhythm: Sinus Bradycardia, PVC's, First degree AV Block Stress Test Details Stress Test: Pharmacologic stress testing performed using 0.4 mg of regadenoson per 5 mL given IV over 10 seconds. Reason for pharmacologic stress test: physical limitation, shortness of breath. HR Resting HR: 58 bpm Max HR Achieved: 86 bpm Max Heart Rate (APMHR): 159 bpm Target HR (85% APMHR): 135 bpm % of APMHR: 54 Recovery HR: 69 bpm HR response to stress: Normal HR response to stress BP Resting BP: 102/57 mmHg Max BP: 141/79 mmHg Recovery BP: 103/62 mmHg BP response to stress: Normal blood pressure response to stress. ECG Resting ECG: Sinus Bradycardia, 1st degree AV block,pvc's,diffuse ST-T changes noted. Stress ECG: Sinus Rhythm, 1st degree AV block ST Change: No significant ST-T changes from baseline. Arrhythmia: None Recovery ECG: Sinus Rhythm, 1st degree AV block,no significant change from baseline. Recovery Arrhythmia: None Clinical Reason for Termination: Completed protocol Stress Symptoms: None Patient underwent iv Lexiscan pharmacologic MPI. NM EXAM: Myocardial Perfusion REST/STRESS Imaging Protocol: Rest Tc-99m/Stress Tc-99m 1 day Resting Data Rest SPECT myocardial perfusion imaging was performed in supine position 45 minutes following the intravenous injection of 10 mCi of Tc-99m Myoview. Time of rest injection: 0900 Date: 08/01/2021 Pharmacologic Stress Pharmacologic stress test was performed by injecting Regadenoson 0.4 mg IV push followed by the intravenous injection of 28 mCi of Tc-99m Myoview. Time of stress injection: 1045 Date: 08/01/2021 Gated Stress SPECT was performed 30 minutes after stress injection. Study Data TID = 1.07. Perfusion Wall Motion Normal LV systolic function noted with normal wall motion.LVEF 65%. Nuclear Conclusion ECG Findings: non-diagnostic Clinical Findings: negative for ischemia Exercise Capacity: not assessed Left Ventricular Function: normal Risk Study: moderate Abnormal study. Scintigraphic evidence for for inferior ischemia noted.However,this can be artifactual considering normal wall motion.
[2021-08-01] MEDS: METOPROLOL TARTRATE 25 MG TAB PO SCH ×2 (13:11→22:18)
[2021-08-01] MEDS: HEPARIN 5,000 UNIT/1 ML VIAL SUB-Q SCH ×2 (13:12→22:17)
[2021-08-01] MEDS: FOLIC ACID 1 MG TAB PO SCH (13:12)
[2021-08-01] MEDS: NIFEdipine XL 60 MG TAB PO SCH (13:12)
[2021-08-01] MEDS: THIAMINE 100 MG TAB PO SCH (13:12)
--- NOTE | 2021-08-01 13:49 | Ultrasound Report ---
ULTRASOUND RENAL INDICATION / CLINICAL INFORMATION: renal failure. COMPARISON: None available. FINDINGS: RIGHT KIDNEY: Length = 10.2 cm. - Echogenicity: Increased - Cortical Thickness: Normal. - Hydronephrosis: None. - Cyst / Mass: 2.2 cm cyst upper pole. 1.6 cm cyst lower pole. No solid mass. - Stones: None seen. LEFT KIDNEY: Length = 9.3 cm. - Echogenicity: Increased - Cortical Thickness: Normal. - Hydronephrosis: None. - Cyst / Mass: None. - Stones: None seen. URINARY BLADDER: No significant abnormality. FREE FLUID: None. ADDITIONAL FINDINGS: Multiple gallbladder wall polyps are incidentally noted.. IMPRESSION: 1. Increased renal echogenicity bilaterally, consistent with medical renal disease. 2. Simple cysts within the upper and lower pole the right kidney. 3. Multiple gallbladder wall polyps are incidentally noted. These could be further evaluated with de dicated right upper quadrant ultrasound if clinically indicated. Signer Name: Hardy Thornton MD Signed: 08/01/2021 1:44 PM Workstation Name: [id number]
--- NOTE | 2021-08-01 14:49 | Consultation ---
History of Present Illness Consult date: 08/01/21 Requesting physician: OSWALD PIÑA Consult reason: chest pain History of present illness: Patient is a 62-year-old female with a past medical history of CHF, CKD, hypertension, hypothyroidism, and COPD who reported to the ED with complaints of acute chest pain which started yesterday. Patient reports that while she was lying in bed yesterday morning she developed sudden onset of chest pain that she describes as pressure and located the pain centrally on her chest. She rated the pain as a 9 out of 10. She associated the chest pain with shortness of breath and lightheadedness. Patient decided to come to the ED to be further evaluated. At time of interview patient reported her chest pain had subsided and currently rated 1 out of 10. She also reports that her shortness of breath and lightheadedness have improved. 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 She was scheduled to see Dr. Nguyen of our practice tomorrow for her diagnosis of CHF. Cardiology is consulted for chest pain Past History Past Medical History: COPD, hyperthyroidism, hypertension, hypothyroidism Past Surgical History: No surgical history Social history: other (Former smoker, history of crack use) Family history: no significant family history Medications and Allergies Allergies Allergy/AdvReac Type Severity Reaction Status Date / Time No Known Allergies Allergy Verified 11/02/15 13:46 Home Medications Medication Instructions Recorded Confirmed Last Taken Type Metoprolol [Lopressor TAB] 12.5 mg PO BID #60 tablet 04/30/16 Unknown Rx NIFEdipine XL [Procardia Xl] 60 mg PO QDAY #30 tablet 04/30/16 Unknown Rx Valsartan [Diovan] 160 mg PO BID #60 tablet 04/30/16 Unknown Rx HYDROcodone/APAP 5-325 [[place] 1 each PO Q4HR PRN #15 tablet 08/20/16 Unknown Rx 5/325] Folic Acid [Folvite] 1 mg PO QDAY #30 tablet 08/24/16 Unknown Rx SILVER sulfADIAZINE 50 GRAM 1 applic TP BID #1 tube 08/24/16 Unknown Rx [Thermazene 50 Gram] Thiamine [Vitamin B-1] 100 mg PO QDAY #30 tablet 08/24/16 Unknown Rx oxyCODONE /ACETAMINOPHEN [Percocet 1 tab PO Q6H PRN #10 tablet 08/24/16 Unknown Rx 5/325 mg] Active Meds: Active Medications Acetaminophen (Acetaminophen 325 Mg Tab) 650 mg PO Q4H PRN PRN Reason: Pain MILD(1-3)/Fever >100.5/SNOW Folic Acid (Folic Acid 1 Mg Tab) 1 mg PO QDAY [facility] Last Admin: 08/01/21 13:12 Dose: 1 mg Heparin Sodium (Porcine) (Heparin 5,000 Unit/1 Ml Vial) 5,000 unit SUB-Q Q12HR [facility] Last Admin: 08/01/21 13:12 Dose: 5,000 unit Sodium Chloride (Nacl 0.9% 500 Ml) 500 mls @ 50 mls/hr IV DIRECT [facility] Stop: 08/02/21 00:59 Metoclopramide HCl (Metoclopramide 10 Mg/2 Ml Inj) 10 mg IV Q6H PRN PRN Reason: Nausea And Vomiting Metoprolol Tartrate (Metoprolol Tartrate 25 Mg Tab) 12.5 mg PO BID [facility] Last Admin: 08/01/21 13:11 Dose: 12.5 mg Nifedipine (Nifedipine Xl 60 Mg Tab) 60 mg PO QDAY [facility] Last Admin: 08/01/21 13:12 Dose: 60 mg Ondansetron HCl (Ondansetron 4 Mg/2 Ml Inj) 4 mg IV Q8H PRN PRN Reason: Nausea And Vomiting Oxycodone/Acetaminophen (Oxycodone /Acetaminophen 5-325mg Tab) 1 tab PO Q6H PRN PRN Reason: Pain, Moderate (4-6) Silver Sulfadiazine (Silver Sulfadiazine Cream 50 Gm) 1 applic TP BID [facility] Last Admin: 08/01/21 13:12 Dose: Not Given Sodium Chloride (Sodium Chloride 0.9% 10 Ml Flush Syringe) 10 ml IV BID [facility] Last Admin: 08/01/21 13:12 Dose: 10 ml Sodium Chloride (Sodium Chloride 0.9% 10 Ml Flush Syringe) 10 ml IV PRN PRN PRN Reason: LINE FLUSH Thiamine HCl (Thiamine 100 Mg Tab) 100 mg PO QDAY [facility] Last Admin: 08/01/21 13:12 Dose: 100 mg Review of Systems Constitutional: no weight loss, no weight gain Ears, nose, mouth and throat: no ear pain, no ear discharge, no tinnitis Cardiovascular: chest pain, lightheadedness, shortness of breath, no orthopnea, no palpitations Respiratory: shortness of breath Gastrointestinal: no abdominal pain, no nausea, no vomiting Musculoskeletal: no neck stiffness, no neck pain, no shooting arm pain Integumentary: no rash, no pruritis, no redness Neurological: no head injury, no transient paralysis, no paralysis, no weakness Psychiatric: no anxiety, no memory loss Endocrine: no cold intolerance, no heat intolerance Hematologic/Lymphatic: no easy bruising, no easy bleeding Physical Examination Vital Signs Temp Pulse Resp BP Pulse Ox 98.4 F 82 16 180/80 98 07/31/21 14:02 07/31/21 14:02 07/31/21 14:02 07/31/21 14:02 07/31/21 14:02 General appearance: no acute distress HEENT: Positive: PERRL Neck: Positive: trachea midline Cardiac: Positive: Reg Rate and Rhythm Lungs: Positive: Normal Breath Sounds Neuro: Positive: Grossly Intact Abdomen: Positive: Soft Skin: Negative: Rash, Suspicious Lesions, Ulceration Extremities: Present: upper extr. pulses. Absent: edema Results 08/01/21 05:04 08/01/21 05:04 Cardiac Enzymes 07/31/21 08/01/21 Range/Units 14:54 05:04 AST 8 9 (5-40) units/L CBC 07/31/21 08/01/21 Range/Units 14:54 05:04 WBC 4.1 L 3.6 L (4.5-11.0) K/mm3 RBC 3.31 L 3.33 L (3.65-5.03) M/mm3 Hgb 9.4 L 9.5 L (10.1-14.3) gm/dl Hct 28.2 L 28.7 L (30.3-42.9) % Plt Count 268 280 (140-440) K/mm3 Lymph # (Auto) 0.9 L 1.3 (1.2-5.4) K/mm3 [place] # (Auto) 0.6 0.6 (0.0-0.8) K/mm3 Eos # (Auto) 0.1 0.1 (0.0-0.4) K/mm3 Baso # (Auto) 0.0 0.0 (0.0-0.1) K/mm3 Comprehensive Metabolic Panel 07/31/21 08/01/21 Range/Units 14:54 05:04 Sodium 143 143 (137-145) mmol/L Potassium 4.1 3.9 (3.6-5.0) mmol/L Chloride 106.4 105.8 (98-107) mmol/L Carbon Dioxide 25 25 (22-30) mmol/L BUN 34 H 36 H (7-17) mg/dL Creatinine 2.3 H 2.3 H (0.6-1.2) mg/dL Glucose 105 H 104 H (65-100) mg/dL Calcium 9.2 8.9 (8.4-10.2) mg/dL AST 8 9 (5-40) units/L ALT 6 L 6 L (7-56) units/L Alkaline Phosphatase 75 68 (35-129) units/L Total Protein 6.9 6.9 (6.3-8.2) g/dL Albumin 3.9 3.9 (3.9-5) g/dL - Imaging and Cardiology Echo: report reviewed Cardiac cath: pending EKG interpretations - Telemetry EKG Rhythm: Sinus Rhythm - EKG Sinus rhythms and dysrhythmias: sinus rhythm Chamber hypertrophy or enlargement: left ventricular hypertro Assessment and Plan Patient is a 62-year-old female with a past medical history of CHF, CKD, hypertension, hypothyroidism, and COPD who reported to the ED with complaints of acute chest pain which started 1 day prior to admission Chest pain HFpEF MISTI on CKD-nephrology following Hypertension Hypothyroidism Abnormal stress test Echo 07/31/2021-EF 50 to 55%. Mild LVH. Left ventricular end-diastolic pressure is elevated. Right ventricle is grossly normal size. Right ventricle systolic function is normal. Aortic valve is calcified. Aortic valve is trileaflet. Mild aortic regurgitation. Lexiscan MPI stress test 08/01/2021-abnormal stress test. Scientific evidence of inferior ischemia noted however this can be artifactual considering normal wall motion Plan: EKG shows sinus or ectopic atrial rhythm 63. With prolonged TN interval, LVH with secondary repolarization abnormality. No acute ischemic changes. Troponins negative x3. AMI ruled out Echo and stress test results noted above Due to abnormal stress test and patient's complaint of chest pain plan for cardiac cath in the AM. N.p.o. after midnight Agree with metoprolol 12.5 mg p.o. twice daily, nifedipine 60 mg p.o. daily Discussed with patient plan of care. Patient verbalized acknowledgment understanding Patient seen in conjunction with Dr. Arevalo who agrees with this plan of care - Patient Problems (1) MISTI (acute kidney injury) Current Visit: Yes Status: Acute (2) Hypertension Current Visit: No Status: Chronic Qualifiers: Hypertension type: essential hypertension Qualified Code(s): I10 - Essential (primary) hypertension (3) Chest pain Current Visit: Yes Status: Acute
[2021-08-01] MEDS ORDERED: SODIUM CHLORIDE 0.9% 500 ML 500 ML IV SCH (15:00)
--- NOTE | 2021-08-01 16:48 | Event Note ---
Date: 08/01/21 Echo;LV function 50 to 55% normal regional wall motion mild concentric LVH Stress test; abnormal study, scintigraphic evidence for inferior ischemia noted, normal wall motion probably the above findings can be artifactual. Cardiology recommended left heart catheterization tomorrow, cardiology consult requested.
[2021-08-01 19:18] LABS: Creatinine,Urine 114.7 mg/dL (0.1-20.0)
[2021-08-01 19:23] LABS: Creatinine,Urine 112.7 mg/dL (0.1-20.0); Protein/Creatinine Ratio,Urine 0.59
[2021-08-01 19:28] LABS: Bacteria,Urine 1+ /HPF (Negative); Bilirubin,Urine NEG (Negative); Blood,Urine NEG (Negative); Color,Urine Yellow (Yellow); Urobilinogen,Urine < 2.0 mg/dL (<2.0)
[2021-08-02 06:00] LABS: Basophils % (Auto) 0.8 % (0.0-1.8); Eosinophils # (Auto) 0.2 K/mm3 (0.0-0.4); Lymphocytes # (Auto) 1.2 K/mm3 (1.2-5.4); Mean Corpuscular HGB Conc 31 % (30-34); Mean Corpuscular Volume 87 fl (79-97); Monocytes # (Auto) 0.5 K/mm3 (0.0-0.8); Monocytes % (Auto) 13.5 % (0.0-7.3); Platelet Count 292 K/mm3 (140-440); Red Cell Distribution Width 14.9 % (13.2-15.2)
[2021-08-02 06:10] LABS: INR 0.91 (0.87-1.13)
[2021-08-02 06:31] LABS: Calcium 8.9 mg/dL (8.4-10.2)
--- NOTE | 2021-08-02 09:19 | Event Note ---
Date: 08/02/21 Patient follows with myself/SCN for CKD, will assume care today. Patient's family reached out to notify of admission to hospital
[2021-08-02 11:16] VITALS: BP 166/91
[2021-08-02] MEDS: METOPROLOL TARTRATE 25 MG TAB PO SCH (11:24)
[2021-08-02] MEDS: HEPARIN 5,000 UNIT/1 ML VIAL SUB-Q SCH (11:24)
[2021-08-02] MEDS: NIFEdipine XL 60 MG TAB PO SCH (11:26)
[2021-08-02] MEDS: FOLIC ACID 1 MG TAB PO SCH (11:26)
[2021-08-02] MEDS: THIAMINE 100 MG TAB PO SCH (11:26)
--- NOTE | 2021-08-02 11:48 | Electrocardiograph Report ---
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
[2021-08-02] MEDS ORDERED: NIFEdipine XL 60 MG TAB PO SCH (12:03)
[2021-08-02] MEDS ORDERED: hydrALAZINE 100 MG TAB PO SCH (13:00)
--- NOTE | 2021-08-02 13:09 | Progress Note ---
Assessment and Plan Patient is a 62-year-old female with a past medical history of CHF, CKD, hypertension, hypothyroidism, and COPD who reported to the ED with complaints of acute chest pain which started 1 day prior to admission Chest pain HFpEF MISTI on CKD-nephrology following Hypertension Hypothyroidism Abnormal stress test Echo 07/31/2021-EF 50 to 55%. Mild LVH. Left ventricular end-diastolic pressure is elevated. Right ventricle is grossly normal size. Right ventricle systolic function is normal. Aortic valve is calcified. Aortic valve is trileaflet. Mild aortic regurgitation. Lexiscan MPI stress test 08/01/2021-abnormal stress test. Scientific evidence of inferior ischemia noted however this can be artifactual considering normal wall motion Plan: Patient cardiac cath canceled today due to renal function. Patient is also currently chest pain-free with no acute ischemic changes on EKG Recommend medical management for now. May consider outpatient cardiac cath if patient continues to have chest pain We will will resume outpatient medications Coreg 25 mg p.o. twice daily, hydralazine 100 mg p.o. daily, nifedipine 90 mg p.o. daily We will initiate aspirin and Lipitor 40 mg p.o. nightly Cardiac status otherwise stable. Will sign off Discussed with patient and patient's daughter plan of care. Both verbalized acknowledgment understanding Patient has a follow-up appointment with Dr. Arevalo, [facility] client specialist, on 08/16/2021 at 2:30 PM in our [place] location. Phone #[phone] Patient seen in conjunction with Dr. Arevalo who agrees with this plan of care - Patient Problems (1) MISTI (acute kidney injury) Current Visit: Yes Status: Acute (2) Hypertension Current Visit: No Status: Chronic Qualifiers: Hypertension type: essential hypertension Qualified Code(s): I10 - Essential (primary) hypertension (3) Chest pain Current Visit: Yes Status: Acute Subjective Date of service: 08/02/21 Principal diagnosis: chest pain Interval history: Resting in bed in no acute distress. Patient reports chest pain has subsided and that she is currently chest pain-free. Patient daughter at bedside Sinus rhythm 60s on monitor with no events Objective Vital Signs Temp Pulse Resp BP BP Pulse Ox 08/02/21 11:24 69 166/91 08/02/21 08:36 97.6 F 69 16 166/91 97 08/02/21 04:37 98.4 F 62 18 157/81 98 08/02/21 04:00 64 08/01/21 23:06 97.9 F 60 18 153/75 98 08/01/21 23:00 74 17 97 08/01/21 22:18 65 131/70 08/01/21 20:26 98.3 F 65 18 131/70 98 08/01/21 16:45 97.5 F L 66 18 138/77 96 08/01/21 13:15 68 166/93 99 - Physical Examination HEENT: Positive: PERRL Neck: Positive: trachea midline Cardiac: Positive: Reg Rate and Rhythm Lungs: Positive: Normal Breath Sounds Neuro: Positive: Grossly Intact Abdomen: Positive: Soft Skin: Negative: Rash, Suspicious Lesions, Ulceration Extremities: Present: upper extr. pulses. Absent: edema - Labs and Meds Coagulation 08/02/21 Range/Units 05:46 PT 13.3 (12.2-14.9) Sec. INR 0.91 (0.87-1.13) CBC 08/02/21 Range/Units 05:46 WBC 3.9 L (4.5-11.0) K/mm3 RBC 3.70 (3.65-5.03) M/mm3 Hgb 10.0 L (10.1-14.3) gm/dl Hct 32.0 (30.3-42.9) % Plt Count 292 (140-440) K/mm3 Lymph # (Auto) 1.2 (1.2-5.4) K/mm3 [place] # (Auto) 0.5 (0.0-0.8) K/mm3 Eos # (Auto) 0.2 (0.0-0.4) K/mm3 Baso # (Auto) 0.0 (0.0-0.1) K/mm3 Comprehensive Metabolic Panel 08/02/21 Range/Units 05:46 Sodium 141 (137-145) mmol/L Potassium 4.0 (3.6-5.0) mmol/L Chloride 105.2 (98-107) mmol/L Carbon Dioxide 22 (22-30) mmol/L BUN 37 H (7-17) mg/dL Creatinine 2.3 H (0.6-1.2) mg/dL Glucose 90 (65-100) mg/dL Calcium 8.9 (8.4-10.2) mg/dL - Imaging and Cardiology EKG: report reviewed (Sinus rhythm no acute ST-T wave changes) Echo: report reviewed - Telemetry EKG Rhythm: Sinus Rhythm - EKG Sinus rhythms and dysrhythmias: sinus rhythm Chamber hypertrophy or enlargement: left ventricular hypertro
[2021-08-02] MEDS ORDERED: NIFEdipine XL 30 MG TAB PO ONE (14:00)
--- NOTE | 2021-08-02 14:32 | Discharge Summary ---
Providers - Providers Date of Admission: 08/01/21 16:35 Date of discharge: 08/02/21 Attending physician: OSWALD PIÑA 07/31/21 19:45 Consult to Physician [CONS] Routine Comment: Consulting Provider: THERESA FRANCE Physician Instructions: Reason For Exam: ckd 08/01/21 13:00 Consult to Physician [CONS] Routine Comment: Consulting Provider: DENITA PAYTON Physician Instructions: Reason For Exam: Abnormal stress test/chest pain Primary care physician: MATILDA ABRAMS Hospitalization Condition: Stable Disposition: 30 STILL A PATIENT Exam - Constitutional Vitals: Temp Pulse Resp BP Pulse Ox 97.6 F 69 16 166/91 97 08/02/21 08:36 08/02/21 11:24 08/02/21 08:36 08/02/21 11:24 08/02/21 08:36 Plan Additional Instructions: Dr. Payton, [facility] extracorporeal circulation specialist, on 08/16/2021 at 2:30 PM in our [place] location. Phone #[phone] Follow up with: MATILDA ABRAMS MD [Primary Care Provider] - 7 Days DENITA PAYTON MD [Staff Physician] - 08/16/21 2:30 pm THERESA FRANCE MD [Staff Physician] - 7 Days Prescriptions: hydrALAZINE [Apresoline TAB] 100 mg PO DAILY #30 tab Aspirin [Aspirin BABY CHEW TAB] 81 mg PO QDAY #30 tab.chew carvediloL [Coreg] 25 mg PO BID #60 tablet AtorvaSTATin [Lipitor] 40 mg PO QHS #30 tablet
[2021-08-02] MEDS ORDERED: carvediloL 25 MG TAB PO SCH (22:00)
[2021-08-03] MEDS ORDERED: NIFEdipine XL 90 MG TAB PO SCH (10:00)
[2021-08-03] MEDS ORDERED: ASPIRIN 81 MG TAB CHEW PO SCH (10:00)
[2021-08-05 05:37] LABS: Gamma Globulin 1.2 g/dL (0.8-1.7)
== END 2021-08-02 17:25 | disposition home or self-care (01) | DRG 313 ==
LOC: ED 13:50 → 4A 19:09 → OBSVTOIN 08-01 16:35
PROVIDERS: ADMIT Internal Medicine; ATTEND Internal Medicine
DX: R07.89 Other chest pain (principal); N17.0 Acute kidney failure with tubular necrosis; I24.9 Acute ischemic heart disease, unspecified; I13.0 Hypertensive heart and chronic kidney disease with heart failure and stage 1 through stage 4 chronic kidney disease, or unspecified chronic kidney disease; I50.32 Chronic diastolic (congestive) heart failure; N18.9 Chronic kidney disease, unspecified; M19.90 Unspecified osteoarthritis, unspecified site; Z82.49 Family history of ischemic heart disease and other diseases of the circulatory system; F17.200 Nicotine dependence, unspecified, uncomplicated; E03.9 Hypothyroidism, unspecified
CPT/HCPCS: 36415; 71045; 76770; 78452; 80048; 80053; 81001; 82570; 82962; 83880; 84100; 84156; 84165; 84300; 84484; 85025; 85610; 87086; 93005; 93010; 93017; 93306; G0378; A9502; C8929; C9113; J1644; J2270; J2405; J2785; J7040